=== PATIENT | male | born 1980 | race Caucasian/White ===

== ENCOUNTER 2022-05-29 11:38 | Outpatient (CLI) | payer BC, SELFPAY ==
[2022-05-29 21:28] LABS: Albumin* 4.2 g/dL (3.3-5.0); Chloride* 108 mmol/L (96-114)
[2022-05-29 21:29] LABS: Sodium* 141 mmol/L (135-149)
[2022-05-29 21:31] LABS: Aspartate Amino Transferase* 43 U/L (12-35); Bilirubin Total* 0.7 mg/dL (0.1-1.5); Carbon Dioxide* 25 mmol/L (20-32); Creatinine* 0.8 mg/dL (0.5-1.5); Estimated Glomerular Filt Rate 113.32; Total Protein* 7.1 g/dL (6.0-8.3)
[2022-05-29 21:32] LABS: Alanine Aminotransferase* 43 U/L (4-50); Alkaline Phosphatase* 155 U/L (40-150); Blood Urea Nitrogen* 15 mg/dL (5-24); Glucose* 101 mg/dL (60-115)
== END 2022-05-29 11:39 | disposition home or self-care (01) ==
LOC: FRMREF 11:40
PROVIDERS: PCP Physician Assistant Medical; Visit Provider Dermatology
DX: Z79.899 Other long term (current) drug therapy (principal); L73.2 Hidradenitis suppurativa
CPT/HCPCS: 80053

== ENCOUNTER 2023-01-29 15:36 | Outpatient (CLI) | payer BC, SELFPAY | END 2023-01-29 15:37 | disposition home or self-care (01) | PROVIDERS: PCP Physician Assistant Medical; Visit Provider Dermatology | DX: L73.2 Hidradenitis suppurativa (principal) | CPT/HCPCS: 80053; 80061 ==

== ENCOUNTER 2023-06-17 16:00 | Outpatient (CLI) | payer BC, SELFPAY | END 2023-06-17 16:01 | disposition home or self-care (01) | LOC: NFLDREF 06-19 11:16 | PROVIDERS: PCP Physician Assistant Medical; Referring Provider Physician Assistant Medical; Visit Provider Dermatology | DX: Z51.81 Encounter for therapeutic drug level monitoring (principal) | CPT/HCPCS: 80076 ==

== ENCOUNTER 2024-02-08 09:34 | Outpatient (CLI) | payer BC, SELFPAY | END 2024-02-08 09:35 | disposition home or self-care (01) | PROVIDERS: PCP Physician Assistant Medical; Visit Provider Nurse Practitioner Family | DX: M10.9 Gout, unspecified (principal) | CPT/HCPCS: 84550 ==

== ENCOUNTER 2024-03-17 07:54 | Outpatient (CLI) | payer BC, SELFPAY ==
--- OUTSIDE RECORDS SUMMARY | 2024-03-17 07:56 | XMS_ITS | Referral Summary ---
Author Name Unknown Organization [facility] Address [address] [place] [address] Care Team Providers Care Pharmacy Innovation Assistant Name Role Phone Elsewhere, Pcp Primary Care Provider Unavailabl e Source Comments Patient records contain information from all sites at [facility]. For routine questions regarding patient records, call [phone] during business hours, M-F 8:00 AM - 5:00 PM Central Time. Record requests for emergency care only can be directed to [phone] at any time.[facility] Encounters Date Type Department Care Team Description 03/08/2024 Refill Division of Metabolic and Abdominal Wall Reconstructive Surgery in [place], [place] [address] [place] [phone] Vani Apodaac APRN, C.N.P., D.N.P. Med Refill 02/15/2024 CPAP Download Remote Patient Monitoring [facility] [address] [place] [address] [facility], Provider 02/13/2024 9:00 AM CDT Telemedicine Division of Endocrinology in [place], [place] [address] [place] [address] Eleazar Cabrera APRN, C.N.P., D.N.P. Diversion Biliopancreatic Duodenal Switch (Primary Dx); Apnea Sleep Obstructive; Body Mass Index 45.0 To 49.9 Adult (HCC) 01/31/2024 8:00 AM MICROECONOMICS PROFESSOR Telemedicine Department of Nutrition and Diabetes Education in [place], [place] [address] [place] [address] Eleazar Cabrera APRN, C.N.P., D.N.P. Nick Enriquez, FREDDIEN, LD Gastric Bypass Status Post 01/15/2024 CPAP Download Remote Patient Monitoring [facility] [address] [place] [address] [facility], Provider 12/20/2023 7:12 AM MICROECONOMICS PROFESSOR - 12/20/2023 11:59 PM MICROECONOMICS PROFESSOR Hospital Encounter Department of Laboratory Medicine and Pathology, [facility], in [place], [place] [address] [place] [address] Eleazar Cabrera APRN, C.N.P., D.N.P. Gastric Bypass Status Post Discharge Disposition: Home or Self Care 12/19/2023 12:45 PM MICROECONOMICS PROFESSOR Office Visit Division of Metabolic and Abdominal Wall Reconstructive Surgery in [place], [place] [address] [place] [address] Navin Blas M.D. Surgery Bariatric Status Post (Primary Dx) from Last 3 Months Allergies Active Allergy Reactions Criticality Noted Date Comments Aluminum Hives (Reselect Reaction) High 11/14/2021 Pollen Extracts Other (see comments) 05/04/2022 Itchy nose and eyes Medications Medication Sig Dispensed Refills Start Date End Date Status allopurinoL (ZYLOPRIM) 100 mg tablet Take 100 mg by mouth at bedtime. Take with Allopurinol 300 mg for total dose of 400 mg. 05/02/2022 Active allopurinoL (ZYLOPRIM) 300 mg tablet Take 300 mg by mouth at bedtime. Take with Allopurinol 100 mg for total dose of 400 mg. 05/02/2022 Active amoxicillin-pot clavulanate (AUGMENTIN) 500-125 mg per tablet 1 tablet at bedtime. 05/04/2022 Acti ve sulfamethoxazole- trimethoprim (BACTRIM DS) 800-160 mg per tablet Take 1 tablet by mouth at bedtime. 07/30/2022 Active ISOtretinoin (ACCUTANE) 40 mg capsule Take 40 mg by mouth at bedtime. 07/06/2022 Active DME CPAPIndications:O bstructive Sleep Apnea Adult DME Order 1 each 02/15/2023 Active fexofenadine (FRANCES) 180 mg tablet Take 180 mg by mouth daily as needed (hayfever). 05/29/2022 Active cyanocobalamin (VITAMIN B12) 1,000 mcg/mL injection Inject 1 mL (1,000 mcg total) intramuscularly every 30 (thirty) days. 3 mL 3 12/09/2023 Active SQ 1 Ml Injection Kit 1 kit as directed. Use as directed to inject prescribed medication. 1 kit = 15-1ml syr w/27G 1/2, #15-27G 1/2Needle, #30 Alcohol wipes 3 kit 3 12/09/2023 Active cholecalciferol (VITAMIN D3) 50 mcg (2,000 Unit) capsule Take 1 capsule (50 mcg total) by mouth daily. 11/09/2023 Active sennosides-docusa te sodium (SENOKOT-S) 8.6-50 mg per tablet Take 1 tablet by mouth 2 (two) times a day as needed (constipation related to narcotic medication). 11/09/2023 Active ursodioL (ACTIGALL) 300 mg capsule Take 1 capsule (300 mg total) by mouth 2 (two) times a day. 180 capsule 1 11/28/2023 Active pantoprazole (PROTONIX) 40 mg EC tablet Take 1 tablet (40 mg total) by mouth 2 (two) times a day before breakfast and dinner. Crush and put into bite of applesauce 180 tablet 3 11/28/2023 Active cholestyramine (QUESTRAN) 4 gram packet Take 60 mL (1 packet total) by mouth 2 (two) times a day before lunch and dinner. 180 packet 3 12/19/2023 Active Active Problems Problem Noted Date Diagnosed Date Body Mass Index 45.0 To 49.9 Adult 11/09/2023 Apnea Sleep Obstructive 02/22/2023 Gout 02/22/2023 Pain Joint 02/22/2023 Hidradenitis Suppurativa 02/22/2023 Morbid Obesity Body Mass Index 50.0-59.9 Adult 0 05/08/2022 Social History Tobacco Use Types Packs/Day Years Used Date Smoking Tobacco: Never Smokeless Tobacco: Never Tobacco Cessation:Counseling Given: Not Answered Alcohol Use Standard Drinks/Week Comments Yes 0 (1 standard drink = 0.6 oz pur e alcohol) Infrequent, 1 time a month [facility] Utilities Answer Date Recorded In the past 12 months has [employer], or water [employer] threatened to shut off services in your home? No 02/06/2024 Humiliation, Afraid, Rape, and Kick questionnair e Answer Date Recorded Within the last year, have y ou been afraid of your partner or ex-partner? No 01/04/2023 Within the last year, have y ou been humiliated or emotionally abused in other ways by your partner or ex-partner? No Within the last year, have y ou been kicked, hit, slapped, or otherwise physically hurt by your partner or ex-partner? No 01/04/2023 Within the last year, have y ou been raped or forced to have any kind of sexual activity by your partner or ex-partner? No 01/04/2023 Social Connection and Isolat ion Panel [NHANES] Answer Date Recorded In a typical week, how many times do you talk on the phone with family, friends, or neighbors? Three times a week 01/04/2023 How often do you get togethe r with friends or relatives? Twice a week 01/04/2023 How often do you attend chur or yarsanism services? Never 01/04/2023 Do you belong to any clubs o r organizations such as zoroastrianism groups, unions, fraternal or athletic groups, or school groups? Yes 01/04/2023 How often do you attend meet ings of the clubs or organizations you belong to? More than 4 times per year 01/04/2023 Are you , , di vorced, , never , or living with a partner? 01/04/2023 AUDIT-C Answer Date Recorded Q1: How often do you have a drink containing alc ohol? Monthly or less 01/04/2023 Q2: How many drinks containi ng alcohol do you have on a typical day when you are drinking? 1 or 2 01/04/2023 Q3: How often do you have si x or more drinks on one occasion? Never 01/04/2023 Overall Financial Resource Strain (CARDIA) Answe r Date Recorded How hard is it for you to pa y for the very basics like food, housing, medical care, and heating? Not hard at all 01/04/2023 PHQ-2 Answer Date Recorded PHQ-2 Score 0 08/27/2022 [facility] of Occupat ional Health - Occupational Stress Questionnaire Answer Date Recorded Do you feel stress - tense, restless, nervous, or anxious, or unable to sleep at night because your mind is troubled all the time - these days? Not at all 01/04/2023 Exercise Vital Sign Answer Date Recorde d On average, how many days pe r week do you engage in moderate to strenuous exercise (like a brisk walk)? 5 days 02/06/2024 On average, how many minutes do you engage in exercise at this level? 60 min 02/06/2024 Hunger Vital Sign Answer Date Recorded Within the past 12 months, y ou worried that your food would run out before you got the money to buy more. Never true 02/06/20 24 Within the past 12 months, t he food you bought just didn't last and you didn't have money to get more. Never true 02/06/2024 PRAPARE - Transportation Answer Date Re corded In the past 12 months, has l ack of transportation kept you from medical appointments or from getting medications? No 01/23 In the past 12 months, has l ack of transportation kept you from meetings, work, or from getting things needed for daily living? No 02/06/2024 Depression Answer Date Recor ded PHQ-9 Total Score (max 27) 1 08/27 Nutrition Answer Date Recorded Nutrition: EVOO Fat Source No 02/05 On average, how many serving s of fruits and vegetables do you eat per day (serving size is equal to 1 cup or approximately the size of a tennis ball)? 3-5 02/06/2024 Dental Answer Date Recorded Dental: Regular Dentist Yes 05/04/20 Employment Answer Date Recorded Employment status Employed and actively working without restrictions 02/06/2024 Housing Stability Answer Date Recorded What is your living situation today? I have a [facility] [place] place to live 02/06/2024 Education Answer Date Recorded What is the highest level of school you have completed or the highest degree you have received? Master's degree (e.g., MA, MS, Parker, MEd, ELECTRONIC MUSICAL INSTRUMENT REPAIRER, DAVID) 05/04/2022 Sex and Gender Information Value Date Recorded Sex Assigned at Male 03/08/2022 9:07 PM CDT Gender Identity Male 03/08/2022 9:07 PM CDT Sexual Orientation Straight 03/08/2022 9: 07 PM CDT Last Filed Vital Signs Vital Sign Reading Time Taken Comments Blood Pressure 104/70 12/10/2023 9:35 AM MICROECONOMICS PROFESSOR Pulse 64 12/10/2023 9:36 AM MICROECONOMICS PROFESSOR Temperature 36.8 ??C (98.2 ??F) 12/10/2023 9:12 AM CS T Respiratory Rate 15 12/10/2023 9:36 AM MICROECONOMICS PROFESSOR Oxygen Saturation 97% 12/10/2023 9:36 AM MICROECONOMICS PROFESSOR Inhaled Oxygen Concentration - - Weight 132 kg (291 lb) 02/13/2024 9:08 AM CDT Height 185.4 cm (6' 0.99) 02/13/2024 9:08 AM CD T Body Mass Index 38.4 02/13/2024 9:08 AM CDT Plan of Treatment Upcoming Encounters Date Type Department Care Team (Late st Contact Info) Description 05/21/2024 1:00 PM CDT Telemedicine Department of Nutrition and Diabetes Education in [place], [place] [address] [place] [phone] Eleazar Cabrera APRN, C.N.P., D.N.P. [address] [place] [address] Medical Devices Implanted Type Area Digital Associate Device Identifier Shelf Expiration Date Model / Serial / Lot Hardware E.G. Pins/Screws/ Rods Hardware e.g. pins/screws /rods Bilateral: Shoulder Description:25 years ago, pascual yomaira anchors, not sure what they are made of Clp Apr Intnl Endo 10 - [id number] Implanted:Qt y: 1 on 11/08/2023 by Navin Blas M.D. at [facility] Hardware e.g. pins/screws /rods N/A: Abdomen Medtronic [id number] 04/24/2028 [id number] / / [id number] Y Procedures Procedure Name Priority Date/Time Associated Diagnosis Comments CBC WITHOUT DIFFERENTIAL, B Routine 01/13/2024 8:10 AM MICROECONOMICS PROFESSOR Gastric Bypass Status Post GLUCOSE, FASTING, S/P Routine 01/13/2024 8:10 AM MICROECONOMICS PROFESSOR Gastric Bypass Status Post HEMOGLOBIN A1C, B Routine 01/13/2024 8:1 0 AM MICROECONOMICS PROFESSOR Gastric Bypass Status Post LIPID PANEL, S Routine 01/13/2024 8:10 AM MICROECONOMICS PROFESSOR Gastric Bypass Status Post from Last 3 Months Results * Lipid Panel (01/13/2024 8:10 AM MICROECONOMICS PROFESSOR) Triglycerides 69 mg/dL 01/14/2024 1:56 PM MICROECONOMICS PROFESSOR DTL Comment: ----REFERENCE VALUE---- Normal: <150 mg/dL Borderline High: 150-199 mg/dL High: 200-499 mg/dL Very High: > or =500 mg/dL Cholesterol, Total 112 mg/dL 2023 1:56 PM MICROECONOMICS PROFESSOR DTL Comment: ----REFERENCE VALUE---- Desirable: < 200 mg/dL Borderline High: 200 - 239 mg/dL High: > or = 240 mg/dL Cholesterol, LDL, Calculated 53 mg/dL 01/14/2024 1:56 PM MICROECONOMICS PROFESSOR DTL Comment: ----REFERENCE VALUE---- Desirable: <100 mg/dL Above Desirable: 100-129 mg/dL Borderline High: 130-159 mg/dL High: 160-189 mg/dL Very High: >=190 mg/dL ----ADDITIONAL INFORMATION---- LDL cholesterol calculated using the Obrien/NIH equation. Cholesterol, HDL, S 44 >=40 mg/dL 01/14/2024 1:56 PM MICROECONOMICS PROFESSOR DTL Cholesterol, Non-HDL, Calculated 68 mg/dL 01/14/2024 1:56 PM MICROECONOMICS PROFESSOR DTL Comment: ----REFERENCE VALUE---- Desirable: <130 mg/dL Above Desirable: 130-159 mg/dL Borderline High: 160-189 mg/dL High: 190-219 mg/dL Very High: > or =220 mg/dL Fasting (8 HR or more) Unknown 01/14/2024 12:52 PM MICROECONOMICS PROFESSOR DTL Blood (Blood, Venous) 01/13/2024 8:10 AM MICROECONOMICS PROFESSOR 01/14/2024 12:53 PM MICROECONOMICS PROFESSOR Eleazar Cabrera APRN, C.N.P., D.N.P. LAB BLOOD ADD-ON [facility] [place] [address] [place], [place] [address] DTL [facility] [address] [place] [address] * (ABNORMAL) CBC without Differential (01/13/2024 8:10 AM MICROECONOMICS PROFESSOR) Hemoglobin 14.5 13.2 - 16.6 g/dL 01/14/2024 1:53 PM MICROECONOMICS PROFESSOR DTL Hematocrit 42.9 38.3 - 48.6 % 01/14/2024 1:53 PM MICROECONOMICS PROFESSOR DTL Erythrocytes 4.78 4.35 - 5.65 x10(12)/L 01/14/2024 1:53 PM MICROECONOMICS PROFESSOR DTL MCV 89.7 78.2 - 97.9 fL 01/14/2024 1:53 PM MICROECONOMICS PROFESSOR DTL RBC Distrib Width 15.9(H) 11.8 - 14.5 % 01/14/2024 1:53 PM MICROECONOMICS PROFESSOR DTL Platelet Count 149 135 - 317 x10(9)/L 01/14/2024 1:53 PM MICROECONOMICS PROFESSOR DTL Leukocytes 5.5 3.4 - 9.6 x10(9)/L 01/14/2024 1:53 PM MICROECONOMICS PROFESSOR DTL Blood (Blood, Venous) 01/13/2024 8:10 AM MICROECONOMICS PROFESSOR 01/14/2024 12:52 PM MICROECONOMICS PROFESSOR Eleazar Cabrera APRN, C.N.P., D.N.P. LAB BLOOD ADD-ON [facility] [place] [address] [place] [address], [facility] [address] [place] [address] * Hemoglobin A1c (01/13/2024 8:10 AM MICROECONOMICS PROFESSOR) Hemoglobin A1c, B 4.8 4.0 - 5.6 % 01/14/2024 2:32 PM MICROECONOMICS PROFESSOR DTL Blood (Blood, Venous) 01/13/2024 8:10 AM MICROECONOMICS PROFESSOR 01/14/2024 12:52 PM MICROECONOMICS PROFESSOR Marina Newsome APRN.N.P., D.N.P. LAB BLOOD ADD-ON [facility] [place] [address] [place] [phone], [facility] [address] [place] [address] * Glucose, Fasting (01/13/2024 8:10 AM MICROECONOMICS PROFESSOR) Glucose, P 88 70 - 100 mg/dL 01/14/2024 1:51 PM MICROECONOMICS PROFESSOR DT Blood (Blood, Venous) 01/13/2024 8:10 AM MICROECONOMICS PROFESSOR 01/14/2024 12:53 PM MICROECONOMICS PROFESSOR Marina Newsome APRN.N.P., D.N.P. LAB BLOOD NON ADD-ON Performing Organization Address City/[facility]/ZIP Co de Phone Number [facility] [place] [address] [place] [address] from Last 3 Months Advance Directives For more information, please contact: [phone] * Full Code (Latest Code Status on File) Date Activated Date Inactivated Comments 11/08/2023 6:08 PM 11/09/2023 4:35 PM Question Answer Comments Full Code: Discussed * Full Code Date Activated Date Inactivated Comments 11/08/2023 9:48 AM 11/08/2023 6:08 PM Question Answer Comments Full Code: Discussed Care Teams Pharmacy Innovation Assistant Relationship Specialty Start Date End Date Elsewhere, Pcp PCP - General Internal Medicine 05/04/22
--- OUTSIDE RECORDS SUMMARY | 2024-03-17 07:56 | XMS_ITS | Encounter Summary ---
Author Name Unknown Organization [facility] Address [address] [place] [address] Care Team Providers Care Seam Presser Name Role Phone Elsewhere, Pcp Primary Care Provider Unavailabl e Encounter Details Date Type Department Care Team (Late st Contact Info) Description 01/31/2024 8:00 AM SUPERVISOR BOAT OUTFITTING Telemedicine Department of Nutrition and Diabetes Education in [place], [place] [address] [place] [phone] Eleazar Cabrera, FARMWORKER LIVESTOCK, C.N.P., D.N.P. [address] [place] [phone] Nick Enriquez RDN, LD [address] [place] [phone] Gastric Bypass Status Post Social History Tobacco Use Types Packs/Day Years Used Date Smoking Tobacco: Never Smokeless Tobacco: Never Alcohol Use Standard Drinks/Week Comments Yes 0 (1 standard drink = 0.6 oz pur e alcohol) Infrequent, 1 time a month Humiliation, Afraid, Rape, and Kick questionnair e [...] How often do you attend chur or jainism services? Never 01/04/2023 Do you belong to any clubs o r organizations such as mosque groups, unions, fraternal or athletic groups, or [...] Answer Date Recorded PHQ-2 Score 0 08/27/2022 [facility] of Occupat ional Health - Occupational Stress [...] to strenuous exercise (like a brisk walk)? 3 days 01/04/2023 On average, how many minutes do you engage in exercise at this level? 30 min 01/04/2023 Hunger Vital Sign Answer Date Recorded Within the past 12 months, y ou worried that your food would run out before you got the money to buy more. Never true 01/04/20 23 Within the past 12 months, t he food you bought just didn't last and you didn't have money to get more. Never true 01/04/2023 PRAPARE - Transportation Answer Date Re corded In the past 12 months, has l ack of transportation kept you from medical appointments or from getting medications? No 12/26 In the past 12 months, has l ack of transportation kept you from meetings, work, or from getting things needed for daily living? No 01/04/2023 Housing Stability Vital Sign Answer Geovanny e Recorded In the last 12 months, was t here a time when you were not able to pay the mortgage or rent on time? No 01/04/2023 In the last 12 months, how many places have you lived? 1 01/04/2023 In the last 12 months, was t here a time when you did not have a steady place to sleep or slept in a skilled nursing (including now)? No 01/04/2023 Depression Answer Date Recor ded PHQ-9 Total Score (max 27) 1 08/27 Nutrition Answer Date Recorded Nutrition: EVOO Fat Source No 01/04 On average, how many serving s of fruits and vegetables do you eat per day (serving size is equal to 1 cup or approximately the size of a tennis ball)? 4-5 01/04/2023 Dental Answer Date Recorded Dental: Regular Dentist Yes 05/04/20 Employment Answer Date Recorded Employment status Employed and actively working without restrictions 01/04/2023 Education Answer Date Recorded What is the highest level of school you have completed or the highest degree you have received? Master's degree (e.g., MA, MS, Parker, MEd, RAILROAD ACCOUNTANT, DAVID) 05/04/2022 Sex and Gender Information Value Date Recorded Sex Assigned at Male 03/08/2022 9:07 PM CDT Gender Identity Male 03/08/2022 9:07 PM CDT Sexual Orientation Straight 03/08/2022 9: 07 PM CDT documented as of this encounter Progress Notes * Nick Enriquez, REMA, LD - 01/31/2024 8:00 AM CST Patient presents for two month status post bariatric surgery/procedure nutrition group visit. Patient will be able to identify the nutritional guidelines recommended for two month status post bariatric surgery/procedure and adopt the habits that are needed for improved health and maintenance of weight loss. The objectives of this class are as follows: -Discuss causes of common post-surgical/procedure nutrition problems -Review fluid recommendations -Review protein intake recommendations -Discuss vitamin/mineral supplements -Explain regular texture diet and appropriate portion sizes -Reinforce healthy lifestyle changes Status post Single Anastomosis duodenal-ileal bypass with sleeve on 11/08/[address] Blas Patient assessment: 12-2/3 cups per meal Meals: 3 meals and 1 snack of a protein shake/bar. GI Symptoms: None currently. Notices fatty foods sit heavy in his stomach Fluids: 64+ oz per day- water, protein shake, SF flavor enhancers as needed Protein: 80-100 grams of protein per day Physical Activity: Has gym membership: 30-40 minutes on [employer] machine followed by 30 minutes of lap swimming in pool 3-4 times per week. Dumbbells at home Goals: Continue to track intake on the [employer] ange Follow up per protocol. Patient Census: 4 Total Group Time: 60 minutes Individual time: 15 minutes The patient attended a virtual group class via real-time audio/video technology by Francisco Enriquez RDN, LD in [facility] to patient in patient home. I introduced myself to the group and limits to confidentially were reviewed. RVISOR BOAT OUTFITTING documented in this encounter Plan of Treatment Upcoming Encounters Date Type Department Care Team (Late st Contact Info) Description 05/21/2024 1:00 PM CDT Telemedicine Department of Nutrition and Diabetes Education in [place], [place] [address] [place] [phone] Eleazar Cabrera APRN, C.N.P., D.N.P. [address] [place] [phone] documented as of this encounter Visit Diagnoses Diagnosis Gastric Bypass Status Post documented in this encounter Additional Health Concerns Assessment Noted Time PHQ-9 Depression Total Score: 1 08/27/20 22 3:21 PM CDT documented as of this encounter Care Teams Seam Presser Relationship Specialty Start Date End Date Elsewhere, Pcp PCP - General Internal Medicine 05/04/22 documented as of this encounter
--- OUTSIDE RECORDS SUMMARY | 2024-03-17 07:56 | XMS_ITS ---
Author Name Unknown Organization [facility] Address [address] [place] [address] Care Team Providers Care Yoke Presser Name Role Phone Unavailable Unavailable Unavailable Surgery Details Not on file Complications Check Surgery Details section. Procedure Estimated Blood Loss Check Surgery Details section. Procedure Findings Check Surgery Details section. Procedure Specimens Taken Check Surgery Details section.
--- OUTSIDE RECORDS SUMMARY | 2024-03-17 07:56 | XMS_ITS | Encounter Summary ---
Author Name Unknown Organization [facility] Address [address] [place] [address] Care Team Providers Care Chocolate Finisher Operator Name Role Phone Elsewhere, Pcp Primary Care Provider Unavailabl e Reason for Referral * Specialty Diagnoses / Procedures Referred By Javed t Referred To Contact Eleazar Cabrera APRN, C.N.P., D.N.P. [address] [place] [address] [facility] Referral ID Status Reason Start Date Expiration Date Visits Re quested Visits Authorized Scheduling Instructions 6 Month Group S/P Bariatric Surgery Reason for Visit * Appointment Request (Routine) - Closed Specialty Diagnoses / Procedures Referred By Contac t Referred To Contact Endocrinology Referral ID Status Reason Start Date Expiration Date Visits Re quested Visits Authorized [id number] Closed 01/31/2024 01/30/2025 1 1 Encounter Details Date Type Department Care Team (Latest Contact Info) Description 02/13/2024 9:00 AM CDT Telemedicine Division of Endocrinology in [place], [place] [address] [place] [phone] Eleazar Cabrera APRN, C.N.P., D.N.P. [address] [place] [address] [phone] Diversion Biliopancreatic Duodenal Switch (Primary Dx); Apnea Sleep Obstructive; Body Mass Index 45.0 To 49.9 Adult ([facility]) Social History Tobacco Use Types Packs/Day Years Used Date Smoking Tobacco: Never Smokeless Tobacco: Never Alcohol Use Standard Drinks/Week Comments Yes 0 (1 standard drink = 0.6 oz pur e alcohol) Infrequent, 1 time a month [facility] Utilities Answer Date Recorded In the past 12 months has th e electric, gas, oil, or water company threatened to shut off services in your [...] How often do you attend chur or synagogue services? Never 01/04/2023 Do you belong to any clubs o r organizations such as scientology groups, unions, fraternal or athletic groups, or [...] Answer Date Recorded PHQ-2 Score 0 08/27/2022 [facility] - Occupational Stress Questionnaire Answer Date Recorded [...] your living situation today? I have a [facility] place to live 02/06/2024 Education Answer Date Recorded What is the highest level of school you have completed or the highest degree you have received? Master's degree (e.g., MA, MS, Parker, Cassi, CUSTODIAL LABORER, DAVID) 05/04/2022 Sex and Gender Information Value Date Recorded Sex Assigned at Male 03/08/2022 9:07 PM CDT Gender Identity Male 03/08/2022 9:07 PM CDT Sexual Orientation Straight 03/08/2022 9: 07 PM CDT documented as of this encounter Last Filed Vital Signs Vital Sign Reading Time Taken Comments Blood Pressure - - Pulse - - Temperature - - Respiratory Rate - - Oxygen Saturation - - Inhaled Oxygen Concentration - - Weight 132 kg (291 lb) 02/13/2024 9:08 AM CDT Height 185.4 cm (6' 0.99) 02/13/2024 9:08 AM CD T Body Mass Index 38.4 02/13/2024 9:08 AM CDT documented in this encounter H&P Notes * Eleazar Cabrera, RIO, C.N.P., D.N.P. - 02/13/2024 9:00 AM CDT SUBJECTIVE REASON FOR VISIT This is a 3 month post-bariatric surgery visit. Today's visit was completed with audiovisual equipment virtually from provider's office to patient's home due to the COVID 19 pandemic. Patient consented to this service. HISTORY OF PRESENT ILLNESS He is being seen today for a 3 month follow-up visit after undergoing a Single Anastomosis duodenal-ileal bypass with sleeve on 11/08/[address] Blas WEIGHT HISTORY Baseline weight in nutrition clinic: 177 kg Weight at time of bariatric surgery: 163 kg Weight at approximately 3 months post-bariatric surgery (today): 132 kg PERTINENT REVIEW OF SYSTEMS Gastrointestinal symptoms include: Nausea: Denies Vomiting: Denies Reflux: Denies Diarrhea: Denies Food Blockage: Denies Abdominal Pain: Denies Dumping Syndrome: Denies Constipation: Denies Gas and Bloating: Denies Reasons for gastrointestinal symptoms: not applicable- no symptoms present CURRENT DIET Met with our dietitian on 01/31/24. Finding it hard to belch as many do after surgery. Fluids and protein have been on track, no liquid calories or carbonated beverages. Follow up endoscopy has been therapeutic for him, now without reflux. ALCOHOL USE No alcohol use and the patient understands that we recommend no alcohol use after bariatric surgery. EXERCISE/ACTIVITY PROGRAM Has been really good for him- some knee inflammation holds him back a bit, but is swimming laps 30-45 minutes at a time. Also using elliptical. Going 3-4 times a week, also doing informal exercise with golfing and hiking. The following portions of the patient's history were reviewed and updated as appropriate: visit questionnaire, allergies, labs, current medications, family history, medical history, social history, surgical history, and problem list. OBJECTIVE VITAL SIGNS Vitals: 02/13/24 0908 Height: 185.4 cm Weight: 132 kg ASSESSMENT / PLAN #1 Diversion Biliopancreatic Duodenal Switch #2 Apnea Sleep Obstructive #3 Body Mass Index 45.0 To 49.9 Adult ([facility]) Other orders - Nutrition - Group bariatric education visit (clinic); Future; Expected date: 05/15/2024 - 25-Hydroxyvitamin D2 and D3; Future; Expected date: 05/15/2024 - Albumin; Future; Expected date: 05/15/2024 - AST (Aspartate Aminotransferase); Future; Expected date: 05/15/2024 - Bone Alkaline Phosphatase; Future; Expected date: 05/15/2024 - Calcium, Total; Future; Expected date: 05/15/2024 - Glucose, Fasting; Future; Expected date: 05/15/2024 - Ferritin; Future; Expected date: 05/15/2024 - Creatinine with Estimated GFR; Future; Expected date: 05/15/2024 - CBC without Differential; Future; Expected date: 05/15/2024 - Hemoglobin A1c; Future; Expected date: 05/15/2024 - Lipid Panel; Future; Expected date: 05/15/2024 - Supersaturation, 24 hour, Urine; Future; Expected date: 05/15/2024 - Copper; Future; Expected date: 05/15/2024 - Folate; Future; Expected date: 03/05/2024 - Vitamin A and Vitamin E; Future; Expected date: 05/15/2024 - Zinc; Future; Expected date: 05/15/2024 LABS and MEDICATIONS I reviewed the labs with him today. He should make the following medication changes: Multivitamin: one multivitamin twice daily Calcium: calcium citrate (Citracal or equivalent) 2 times daily with food, being at least 500 mg ineach dose. Vitamin D: no extra vitamin D. Only in his calcium. Vitamin B12: 1000 mcg injection monthly. Iron: no extra iron supplementation, apart from iron present in multivitamins. Labs and 24 hour urine collection prior to next visit will be mailed to his home and brought to a lab with results faxed back to us. Now that he is a few months out from surgery, he has the ok to start more intense physical activity. This should be ideally activity that can increase the heart rate, aiming for 150 minutes of moderate intensity activity weekly. Additionally, he should incorporate strength training in order to preserve lean tissue which will help maintain a higher metabolic rate jail. Emphasis on the next couple months will be aimed at tolerance of new textures of foods and appropriate portion sizes. Plan to continue to slowly increase calories in the next couple months to supportenergy levels, increased activity, and new food options. Will aim to prioritize protein first with meals, and sip between meals to meet protein and fluid goals, and continuing abstinence from alcohol. Briefly reviewed post-bariatric surgery dietary recommendations, including: daily calorie guidelines; healthy dietary and lifestyle choices; common post- surgical nutrition problems; weight plateaus; and the importance of keeping food intake and weight records. He should follow lifelong with a Primary Care Provider for chronic disease management, acute needs,and annual physicals, as well as the [facility] annually jail. At present, I would advise follow-up in approximately 3-4 months. He can contact us for additional appointments if needs arise in the interim. I personally spent a total of 30 minutes in [id number] time performing a review of the record, care coordination, documentation, and discussion with the patient as described above. documented in this encounter Plan of Treatment Upcoming Encounters Date Type Department Care Team (Late st Contact Info) Description 05/21/2024 1:00 PM CDT Telemedicine Department of Nutrition and Diabetes Education in [place], [place] [address] [place] [address] Eleazar Cabrera APRN, C.N.P., D.N.P. [address] [place] [address] Scheduled Orders Name Type Priority Associated Diagnoses Orde r Schedule 25-Hydroxyvitamin D2 and D3 Lab Routine Diversion Biliopancreatic Duodenal Switch Apnea Sleep Obstructive Body Mass Index 45.0 To 49.9 Adult (HCC) Expected: 05/15/2024, Expires: 02/12/2025 Albumin Lab Routine Diversion Biliopancreatic Duodenal Switch Apnea Sleep Obstructive Body Mass Index 45.0 To 49.9 Adult (HCC) Expected: 05/15/2024 (Approximate), Expires: 02/12/2025 AST (Aspartate Aminotransferase) Lab Routine Diversion Biliopancreatic Duodenal Switch Apnea Sleep Obstructive Body Mass Index 45.0 To 49.9 Adult (HCC) Expected: 05/15/2024 (Approximate), Expires: 02/12/2025 Bone Alkaline Phosphatase Lab Routine Diversion Biliopancreatic Duodenal Switch Apnea Sleep Obstructive Body Mass Index 45.0 To 49.9 Adult (HCC) Expected: 05/15/2024 (Approximate), Expires: 02/12/2025 Calcium, Total Lab Routine Diversion Biliopancreatic Duodenal Switch Apnea Sleep Obstructive Body Mass Index 45.0 To 49.9 Adult (HCC) Expected: 05/15/2024 (Approximate), Expires: 02/12/2025 Glucose, Fasting Lab Routine Diversion Biliopancreatic Duodenal Switch Apnea Sleep Obstructive Body Mass Index 45.0 To 49.9 Adult (HCC) Expected: 05/15/2024 (Approximate), Expires: 02/12/2025 Ferritin Lab Routine Diversion Biliopancreatic Duodenal Switch Apnea Sleep Obstructive Body Mass Index 45.0 To 49.9 Adult (HCC) Expected: 05/15/2024 (Approximate), Expires: 02/12/2025 Creatinine with Estimated GFR Lab Routine Diversion Biliopancreatic Duodenal Switch Apnea Sleep Obstructive Body Mass Index 45.0 To 49.9 Adult (HCC) Expected: 05/15/2024 (Approximate), Expires: 02/12/2025 CBC without Differential Lab Routine Diversion Biliopancreatic Duodenal Switch Apnea Sleep Obstructive Body Mass Index 45.0 To 49.9 Adult (HCC) Expected: 05/15/2024 (Approximate), Expires: 02/12/2025 Hemoglobin A1c Lab Routine Diversion Biliopancreatic Duodenal Switch Apnea Sleep Obstructive Body Mass Index 45.0 To 49.9 Adult (HCC) Expected: 05/15/2024 (Approximate), Expires: 02/12/2025 Lipid Panel Lab Routine Diversion Biliopancreatic Duodenal Switch Apnea Sleep Obstructive Body Mass Index 45.0 To 49.9 Adult (HCC) Expected: 05/15/2024 (Approximate), Expires: 02/12/2025 Supersaturation, 24 hour, Urine Lab Routine Diversion Biliopancreatic Duodenal Switch Apnea Sleep Obstructive Body Mass Index 45.0 To 49.9 Adult (HCC) Expected: 05/15/2024 (Approximate), Expires: 02/12/2025 Copper Lab Routine Diversion Biliopancreatic Duodenal Switch Apnea Sleep Obstructive Body Mass Index 45.0 To 49.9 Adult (HCC) Expected: 05/15/2024 (Approximate), Expires: 05/15/2025 Vitamin A and Vitamin E Lab Routine Diversion Biliopancreatic Duodenal Switch Apnea Sleep Obstructive Body Mass Index 45.0 To 49.9 Adult (HCC) Expected: 05/15/2024 (Approximate), Expires: 05/15/2025 Zinc Lab Routine Diversion Biliopancreatic Duodenal Switch Apnea Sleep Obstructive Body Mass Index 45.0 To 49.9 Adult (HCC) Expected: 05/15/2024 (Approximate), Expires: 05/15/2025 Folate Lab Routine Diversion Biliopancreatic Duodenal Switch Apnea Sleep Obstructive Body Mass Index 45.0 To 49.9 Adult (HCC) Expected: 05/15/2024 (Approximate), Expires: 05/15/2025 Scheduled Referrals Name Type Priority Associated Diagnoses Orde r Schedule Nutrition - Group bariatric education visit (clinic) Outpatient Referral Routine Diversion Biliopancreatic Duodenal Switch Apnea Sleep Obstructive Body Mass Index 45.0 To 49.9 Adult (HCC) Expected: 05/15/2024 (Approximate), Expires: 05/15/2025 documented as of this encounter Visit Diagnoses Diagnosis Diversion Biliopancreatic Duodenal Switch- Primary Apnea Sleep Obstructive Body Mass Index 45.0 To 49.9 Adult (HCC) documented in this encounter Additional Health Concerns Assessment Noted Time PHQ-9 Depression Total Score: 1 08/27/20 22 3:21 PM CDT documented as of this encounter Care Teams Chocolate Finisher Operator Relationship Specialty Start Date End Date Elsewhere, Pcp PCP - General Internal Medicine 05/04/22 documented as of this encounter
--- OUTSIDE RECORDS SUMMARY | 2024-03-17 07:56 | XMS_ITS | Clinical Summary ---
Author Name Unknown Organization [facility] Address [address] [place] [address] Care Team Providers Care Waiter/Waitress Dining Car Name Role Phone Elsewhere, Pcp Primary Care Provider Unavailabl e Source Comments Patient records contain information from all sites at [facility]. For routine questions regarding patient records, call [phone] during business hours, M-F 8:00 AM - 5:00 PM Central Time. Record requests for emergency care only can be directed to [phone] at any time.[facility] Allergies Active Allergy Reactions Criticality Noted Date [...] Body Mass Index 50.0-59.9 Adult 0 05/08/2022 Encounters Date Type Department Care Team Description 03/08/2024 Refill Division of Metabolic and Abdominal Wall Reconstructive Surgery in [place], [place] [address] [place] [address] Vani Apodaca APRN C.N.P., D.N.P. Med Refill 02/15/2024 CPAP Download Remote Patient Monitoring [facility] [address] [place] [address] [facility], Provider 02/13/2024 9:00 AM CDT Telemedicine Division of Endocrinology in [place], [place] [address] [place] [phone] Eleazar Cabrera APRN C.N.PAlexis, D.N.P. Diversion Biliopancreatic Duodenal Switch (Primary Dx); Apnea Sleep Obstructive; Body Mass Index 45.0 To 49.9 Adult ([facility]) 01/31/2024 8:00 AM INDEPENDENT JEWELER Telemedicine Department of Nutrition and Diabetes Education in [place], [place] [address] [place] [phone] Eleazar Cabrera APRN, C.N.P., D.N.P. Nick Enriquez RDN, LD Gastric Bypass Status Post 01/15/2024 CPAP Download Remote Patient Monitoring [facility] [address] [place] [address] [facility], Provider 12/20/2023 7:12 AM INDEPENDENT JEWELER - 12/20/2023 11:59 PM IN[facility]ENDENT JEWELER Hospital Encounter Department of Laboratory Medicine and Pathology, [facility], in [place], [place] [address] [place] [phone] Eleazar Cabrera APRN, Marina.N.P., D.N.P. Gastric Bypass Status Post Discharge Disposition: Home or Self Care 12/19/2023 12:45 PM INDEPENDENT JEWELER Office Visit Division of Metabolic and Abdominal Wall Reconstructive Surgery in [place], [place] [address] [place] [phone] Navin Blas M.D. Surgery Bariatric Status Post (Primary Dx) from Last 3 Months Family History Medical History Relation Name Comments Leukemia Brother Felipe Streeter Hairy cell leuk emia , 43 Obesity Brother Felipe Streeter Coronary artery disease Father Mariano Streeter Sudd en arrhythmia Diabetes Father Mariano Streeter Type 2 Hyperlipidemia Father Mariano Streeter Hypertension Father Mariano Streeter Obesity Father Mariano Streeter Leukemia Father's Brother Gregorio Ferdinand 60 Breast cancer Father's Sister Ana Hudson 60 Clotting disorder Mother Lnida Streeter Diabetes Mother Linda Streeter Type 2 Obesity Mother Linda Streeter Coronary artery disease Paternal Grandfather Jonathan interiano Massive heart attack Diabetes Paternal Grandmother Sandra Streeetr Clotting disorder Sister Karen Ivory Obesity Sister Karen Ivory Relation Name Status Comments Brother Felipe Streeter Father Mariano Streeter Father's Brother Gregorio Streeter Father's Sister Ana Hudson Mother Linda Streeter Paternal Grandfather Jonathan Streeter Paternal Grandmother Sandra Streeter Sister Karen Ivory Social History Tobacco Use Types Packs/Day Years Used Date Smoking Tobacco: Never Smokeless Tobacco: Never Tobacco Cessation:Counseling Given: Not Answered Alcohol Use Standard Drinks/Week Comments Yes 0 (1 standard drink = 0.6 oz pur e alcohol) Infrequent, 1 time a month [facility] [email or web address] Answer Date Recorded In the past 12 months has e [employer], gas, oil, or water [employer] threatened to shut off services in your [...] 01/04/2023 How often do you attend chur ch or jewish services? Never 01/04/2023 Do you belong to any clubs o r organizations such as judaism groups, unions, fraternal or athletic groups, or [...] Answer Date Recorded PHQ-2 Score 0 08/27/2022 [facility] - Occupational Stress Questionnaire Answer Date Recorded [...] your living situation today? I have a [facility] place to live 02/06/2024 Education Answer Date Recorded What is the highest level of school you have completed or the highest degree you have received? Master's degree (e.g., MA, MS, Parker, MEd, TURBINE MEASUREMENTS ENGINEER, DAVID) 05/04/2022 Sex and Gender Information Value Date Recorded Sex Assigned at Male 03/08/2022 9:07 PM CDT Gender Identity Male 03/08/2022 9:07 PM CDT Sexual Orientation Straight 03/08/2022 9: 07 PM CDT Last Filed Vital Signs Vital Sign Reading Time Taken Comments Blood Pressure 104/70 12/10/2023 9:35 AM INDEPENDENT JEWELER Pulse 64 12/10/2023 9:36 AM INDEPENDENT JEWELER Temperature 36.8 ??C (98.2 ??F) 12/10/2023 9:12 AM CS T Respiratory Rate 15 12/10/2023 9:36 AM INDEPENDENT JEWELER Oxygen Saturation 97% 12/10/2023 9:36 AM INDEPENDENT JEWELER Inhaled Oxygen Concentration - - Weight 132 kg (291 lb) 02/13/2024 9:08 AM CDT Height 185.4 cm (6' 0.99) 02/13/2024 9:08 AM CD T Body Mass Index 38.4 02/13/2024 9:08 AM CDT Plan of Treatment Upcoming Encounters Date Type Department Care Team (Late st Contact Info) Description 05/21/2024 1:00 PM CDT Telemedicine Department of Nutrition and Diabetes Education in [place], [place] [address] [place] [address] Eleazar Cabrera APRN, C.N.P., D.N.P. [address] [place] [address] Health Maintenance Due Date Last Done Comments HIV Screening 1979 Hepatitis C Screening 1979 DTaP,Tdap,and Td Vaccines (1 - Tdap) 1998 Hepatitis B Vaccines (1 of 3 - 19+ 3-dose series) 1998 COVID-19 Vaccine (3 - 2022-2 4 season) 2023 05/24/2021, 03/05/2021 Influenza Vaccine (#1) 2023 09/26/2021 Depression Screening (Annual PHQ-2) 11/25/2023 Lipid (Cholesterol) Screening 01/13/2029 01/13/2024 HPV Vaccines Aged Out No longer eligi ble based on patient's age to complete this topic Pneumococcal vaccine (0-64 years) Aged Out No longer eligible b ased on patient's age to complete this topic Medical Devices Implanted Type Area Electromechanisms Design Drafter Device Identifier Shelf Expiration Date Model / Serial / Lot Hardware E.G. Pins/Screws/ Rods Hardware e.g. pins/screws /rods Bilateral: Shoulder Description:25 years ago, pascual burnette anchors, not sure what they are made of Clp Apr Intnl Endo 10 - [id number] Implanted:Qt y: 1 on 11/08/2023 by Navin Blas M.D. at [facility] Hardware e.g. pins/screws /rods N/A: Abdomen Medtronic [id number] 04/24/2028 [id number] / / [id number] Procedures Procedure Name Priority Date/Time Associated Diagnosis Comments CBC WITHOUT DIFFERENTIAL, B Routine 01/13/2024 8:10 AM INDEPENDENT JEWELER Gastric Bypass Status Post GLUCOSE, FASTING, S/P Routine 01/13/2024 8:10 AM INDEPENDENT JEWELER Gastric Bypass Status Post HEMOGLOBIN A1C, B Routine 01/13/2024 8:1 0 AM INDEPENDENT JEWELER Gastric Bypass Status Post LIPID PANEL, S Routine 01/13/2024 8:10 AM INDEPENDENT JEWELER Gastric Bypass Status Post from Last 3 Months Results * Lipid Panel (01/13/2024 8:10 AM INDEPENDENT JEWELER) Triglycerides 69 mg/dL 01/14/2024 1:56 PM INDEPENDENT JEWELER DTL Comment: ----REFERENCE VALUE---- Normal: <150 mg/dL Borderline High: 150-199 mg/dL High: 200-499 mg/dL Very High: > or =500 mg/dL Cholesterol, Total 112 mg/dL 2023 1:56 PM INDEPENDENT JEWELER DTL Comment: ----REFERENCE VALUE---- Desirable: < 200 mg/dL Borderline High: 200 - 239 mg/dL High: > or = 240 mg/dL Cholesterol, LDL, Calculated 53 mg/dL 01/14/2024 1:56 PM INDEPENDENT JEWELER DTL Comment: ----REFERENCE VALUE---- Desirable: <100 mg/dL Above Desirable: 100-129 mg/dL Borderline High: 130-159 mg/dL High: 160-189 mg/dL Very High: >=190 mg/dL ----ADDITIONAL INFORMATION---- LDL cholesterol calculated using the Obrien/NIH equation. Cholesterol, HDL, S 44 >=40 mg/dL 01/14/2024 1:56 PM INDEPENDENT JEWELER DTL Cholesterol, Non-HDL, Calculated 68 mg/dL 01/14/2024 1:56 PM INDEPENDENT JEWELER DTL Comment: ----REFERENCE VALUE---- Desirable: <130 mg/dL Above Desirable: 130-159 mg/dL Borderline High: 160-189 mg/dL High: 190-219 mg/dL Very High: > or =220 mg/dL Fasting (8 HR or more) Unknown 01/14/2024 12:52 PM INDEPENDENT JEWELER DTL Blood (Blood, Venous) 01/13/2024 8:10 AM INDEPENDENT JEWELER 01/14/2024 12:53 PM INDEPENDENT JEWELER Eleazar Cabrera APRN C.N.P., D.N.P. LAB BLOOD ADD-ON [facility] [address] [place] [address], [facility] [place] [address] [place] [address] * (ABNORMAL) CBC without Differential (01/13/2024 8:10 AM INDEPENDENT JEWELER) Pathologist [facility] Hemoglobin 14.5 13.2 - 16.6 g/dL 01/14/2024 1:53 PM INDEPENDENT JEWELER DTL Hematocrit 42.9 38.3 - 48.6 % 01/14/2024 1:53 PM INDEPENDENT JEWELER DTL Erythrocytes 4.78 4.35 - 5.65 x10(12)/L 01/14/2024 1:53 PM INDEPENDENT JEWELER DTL MCV 89.7 78.2 - 97.9 fL 01/14/2024 1:53 PM INDEPENDENT JEWELER DTL RBC Distrib Width 15.9(H) 11.8 - 14.5 % 01/14/2024 1:53 PM INDEPENDENT JEWELER DTL Platelet Count 149 135 - 317 x10(9)/L 01/14/2024 1:53 PM INDEPENDENT JEWELER DTL Leukocytes 5.5 3.4 - 9.6 x10(9)/L 01/14/2024 1:53 PM INDEPENDENT JEWELER DTL Blood (Blood, Venous) 01/13/2024 8:10 AM INDEPENDENT JEWELER 01/14/2024 12:52 PM INDEPENDENT JEWELER Marina Newsome APRN.N.P., D.N.P. LAB BLOOD ADD-ON Performing Organization Address City/[facility]/ZIP Co de Phone Number [facility] [address] [place] [address], [facility] [address] [place] [address] * Hemoglobin A1c (01/13/2024 8:10 AM INDEPENDENT JEWELER) Pathologist [facility] Hemoglobin A1c, B 4.8 4.0 - 5.6 % 01/14/2024 2:32 PM INDEPENDENT JEWELER DTL Blood (Blood, Venous) 01/13/2024 8:10 AM INDEPENDENT JEWELER 01/14/2024 12:52 PM INDEPENDENT JEWELER Marina Newsome APRN.N.P., D.N.P. LAB BLOOD ADD-ON [facility] [address] [place] [address], [facility] [place] [address] [place] [address] * Glucose, Fasting (01/13/2024 8:10 AM INDEPENDENT JEWELER) Glucose, P 88 70 - 100 mg/dL 01/14/2024 1:51 PM INDEPENDENT JEWELER DTL Blood (Blood, Venous) 01/13/2024 8:10 AM INDEPENDENT JEWELER 01/14/2024 12:53 PM INDEPENDENT JEWELER Eleazar Veronica Rick PATE, C.N.P., D.N.P. LAB BLOOD NON ADD-ON [facility] [address] [place] [address], [facility] [place] [address] [place] [address] from Last 3 Months Advance Directives For more information, please contact: [phone] * Full Code (Latest Code Status on File) Date Activated Date Inactivated Comments 11/08/2023 6:08 PM 11/09/2023 4:35 PM Question Answer Comments Full Code: Discussed * Full Code Date Activated Date Inactivated Comments 11/08/2023 9:48 AM 11/08/2023 6:08 PM Question Answer Comments Full Code: Discussed Care Teams Waiter/Waitress Dining Car Relationship Specialty Start Date End Date Elsewhere, Pcp PCP - General Internal Medicine 05/04/22
--- OUTSIDE RECORDS SUMMARY | 2024-03-17 07:56 | XMS_ITS | Encounter Summary ---
Author Name Unknown Organization [facility] Address [address] [place] [address] Care Team Providers Care Woodworking Bench Carpenter Name Role Phone Elsewhere, Pcp Primary Care Provider Unavailabl e Encounter Details Date Type Department Care Team (Late st Contact Info) Description 02/15/2024 CPAP Download Remote Patient Monitoring [facility] [address] [place] [address] [facility], Provider Social History Tobacco Use Types Packs/Day Years Used Date Smoking Tobacco: Never Smokeless Tobacco: Never Alcohol Use Standard Drinks/Week Comments Yes 0 (1 standard drink = 0.6 oz pur e alcohol) Infrequent, 1 time a month [facility] Utilities Answer Date Recorded In the past 12 months has e electric, gas, oil, or water company [...] often do you attend chur ch or religion services? Never 01/04/2023 Do you belong to any clubs o r organizations such as synagogue groups, unions, fraternal or athletic groups, or [...] Answer Date Recorded PHQ-2 Score 0 08/27/2022 [facility] of Occupat ional Health - Occupational Stress [...] your living situation today? I have a [facility] place to live 02/06/2024 Education Answer Date Recorded What is the highest level of school you have completed or the highest degree you have received? Master's degree (e.g., MA, MS, Parker, MEd, REGIONAL PLANNER, DAVID) 05/04/2022 Sex and Gender Information Value Date Recorded Sex Assigned at Male 03/08/2022 9:07 PM CDT Gender Identity Male 03/08/2022 9:07 PM CDT Sexual Orientation Straight 03/08/2022 9: 07 PM CDT documented as of this encounter Plan of Treatment Upcoming Encounters Date Type Department Care Team (Late st Contact Info) Description 05/21/2024 1:00 PM CDT Telemedicine Department of Nutrition and Diabetes Education in [place], [place] [address] [place] [address] Eleazar Cabrera APRN, C.N.P., D.N.P. [address] [place] [address] documented as of this encounter Visit Diagnoses Not on filedocumented in this encounter Additional Health Concerns Assessment Noted Time PHQ-9 Depression Total Score: 1 08/27/20 22 3:21 PM CDT documented as of this encounter Care Teams Woodworking Bench Carpenter Relationship Specialty Start Date End Date Elsewhere, Pcp PCP - General Internal Medicine 05/04/22 documented as of this encounter
--- OUTSIDE RECORDS SUMMARY | 2024-03-17 07:56 | XMS_ITS | Encounter Summary ---
Author Name Unknown Organization [facility] Address [address] [place] [address] Care Team Providers Care Magnetic Observer Name Role Phone Elsewhere, Pcp Primary Care Provider Unavailabl e Reason for Visit * Reason Comments Med Refill Encounter Details Date Type Department Care Team (Late st Contact Info) Description 03/08/2024 Refill Division of Metabolic and Abdominal Wall Reconstructive Surgery in [place], [place] [address] [place] [address] Vani Apodaca APRN, C.N.P., D.N.P. [address] [place] [phone] Med Refill Social History Tobacco Use Types Packs/Day Years Used Date Smoking Tobacco: Never Smokeless Tobacco: Never Alcohol Use Standard Drinks/Week Comments Yes 0 (1 standard drink = 0.6 oz pur e alcohol) Infrequent, 1 time a month [facility] Utilities Answer Date Recorded In the past 12 months has e [employer], gas, oil, or water [employer] threatened to shut off services in your [...] often do you attend chur ch or moravian services? Never 01/04/2023 Do you belong to any clubs o r organizations such as scientologist groups, unions, fraternal or athletic groups, or [...] Answer Date Recorded PHQ-2 Score 0 08/27/2022 [facility] of Occupat ional Health - Occupational [...] your living situation today? I have a [facility] place to live 02/06/2024 Education Answer Date Recorded What is the highest level of school you have completed or the highest degree you have received? Master's degree (e.g., MA, MS, Parker, MEd, TERMINAL MAKEUP OPERATOR, DAVID) 05/04/2022 Sex and Gender Information Value Date Recorded Sex Assigned at Male 03/08/2022 9:07 PM CDT Gender Identity Male 03/08/2022 9:07 PM CDT Sexual Orientation Straight 03/08/2022 9: 07 PM CDT documented as of this encounter Miscellaneous Notes * Telephone Encounter - Vani Apodaca APRN, C.N.P., D.N.P. - 03/09/2024 8:00 AM CDT No additional refills for Actigall needed, only 6 months needed post bariatric surgery documented in this encounter Plan of Treatment Upcoming Encounters Date Type Department Care Team (Late st Contact Info) Description 05/21/2024 1:00 PM CDT Telemedicine Department of Nutrition and Diabetes Education in [place], [place] [address] [place] [phone] Eleazar Cabrera APRN, C.N.Anders., D.N.P. [address] [place] [phone] documented as of this encounter Visit Diagnoses Not on filedocumented in this encounter Additional Health Concerns Assessment Noted Time PHQ-9 Depression Total Score: 1 08/27/20 22 3:21 PM CDT documented as of this encounter Care Teams Magnetic Observer Relationship Specialty Start Date End Date Elsewhere, Pcp PCP - General Internal Medicine 05/04/22 documented as of this encounter
--- OUTSIDE RECORDS SUMMARY | 2024-03-17 07:57 | XMS_ITS | Encounter Summary ---
Author Name Unknown Organization [facility] Address [address] [place] [address] Care Team Providers Care Leadite Worker Name Role Phone Elsewhere, Pcp Primary Care Provider Unavailabl e Reason for Visit * Outpatient (Routine) - Closed Specialty Diagnoses / Procedures Referred By Javed garrison Referred To Contact General Surgery Navin Blas M.D. [address] [place] [phone] [facility] Referral ID Status Reason Start Date Expiration Date Visits Re quested Visits Authorized [id number] Closed 12/10/2023 12/09/2026 1 1 Encounter Details Date Type Department Care Team (Latest Contact Info) Description 12/19/2023 12:45 PM SQUARE CUTTER Office Visit Division of Metabolic and Abdominal Wall Reconstructive Surgery in [place], [place] [address] [place] [address] Navin Blas M.D. [address] [place] [phone] Surgery Bariatric Status Post (Primary Dx) Social History Tobacco Use Types Packs/Day Years [...] How often do you attend chur or caodaism services? Never 01/04/2023 Do you belong to any clubs o r organizations such as uatsdin groups, unions, fraternal or athletic groups, or [...] Answer Date Recorded PHQ-2 Score 0 08/27/2022 [facility] of Occupat ional Health - Occupational Stress [...] degree (e.g., MA, MS, Parker, MEd, REGIONAL TRAINER, DAVID) 05/04/2022 Sex and Gender Information Value Date Recorded Sex Assigned at Male 03/08/2022 9:07 PM CDT Gender Identity Male 03/08/2022 9:07 PM CDT Sexual Orientation Straight 03/08/2022 9: 07 PM CDT documented as of this encounter Consult Notes * Navin Blas M.D. 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 He is feeling way better since his endoscopy. He an instead of having multiple episodes of reflux during the night had to episodes and they were very mild in the past 7-10 days. He has lost 65 lb. Nodiarrhea. He is taking his vitamins. He is very happy with his progress now. We will follow up withhim as needed. If the symptoms recur then he needs to let us know. He totally understands. Note that my nurse Gaye Enriquez was present during the whole encounter RE CUTTER documented in this encounter Plan of Treatment Upcoming Encounters Date Type Department Care Team (Late st Contact Info) Description 05/21/2024 1:00 PM CDT Telemedicine Department of Nutrition and Diabetes Education in [place], [place] [address] [place] [phone] Eleazar Cabrera APRN, C.N.P., D.N.P. [address] [place] [address] documented as of this encounter Visit Diagnoses Diagnosis Surgery Bariatric Status Post- Primary documented in this encounter Additional Health Concerns Assessment Noted Time PHQ-9 Depression Total Score: 1 08/27/20 22 3:21 PM CDT documented as of this encounter Care Teams Leadite Worker Relationship Specialty Start Date End Date Elsewhere, Pcp PCP - General Internal Medicine 05/04/22 documented as of this encounter
--- OUTSIDE RECORDS SUMMARY | 2024-03-17 07:57 | XMS_ITS | Encounter Summary ---
Author Name Unknown Organization [facility] Address [address] [place] [address] Care Team Providers Care Sales And Marketing Associate Name Role Phone Elsewhere, Pcp Primary Care Provider Unavailabl e Encounter Details Date Type Department Care Team (Latest Contact Info) Description 12/20/2023 7:12 AM [facility] - 12/20/2023 11:59 PM [facility] Hospital Encounter Department of Laboratory Medicine and Pathology, [facility] in [place], [place] [address] [place] [address] Eleazar Cabrera APRN, C.N.P., D.N.P. [address] [place] [phone] Gastric Bypass Status Post Discharge Disposition: Home or Self Care Social History Tobacco Use Types Packs/Day Years [...] How often do you attend chur or sikhism services? Never 01/04/2023 Do you belong to [...] Answer Date Recorded PHQ-2 Score 0 08/27/2022 [facility] of Occupat ionma Health - Occupational Stress Questionnaire Answer Date [...] place to sleep or slept in a detention (including now)? No 01/04/2023 Depression Answer Date [...] Master's degree (e.g., MA, MS, Parker, MEd, CHAIN FORMING MACHINE OPERATOR, DAVID) 05/04/2022 Sex and Gender Information Value Date Recorded Sex Assigned at Male 03/08/2022 9:07 PM CDT Gender Identity Male 03/08/2022 9:07 PM CDT Sexual Orientation Straight 03/08/2022 9: 07 PM CDT documented as of this encounter Medications at Time of Discharge Medication Sig Dispensed Refills Start Date End Date allopurinoL (ZYLOPRIM) 100 mg tablet Take 100 mg by mouth at bedtime. Take with Allopurinol 300 mg for total dose of 400 mg. 05/02/2022 allopurinoL (ZYLOPRIM) 300 mg tablet Take 300 mg by mouth at bedtime. Take with Allopurinol 100 mg for total dose of 400 mg. 05/02/2022 amoxicillin-pot clavulanate (AUGMENTIN) 500-125 mg per tablet 1 tablet at bedtime. 05/04/2022 cholecalciferol (VITAMIN D3) 50 mcg (2,000 Unit) capsule Take 1 capsule (50 mcg total) by mouth daily. 11/09/2023 cholestyramine (QUESTRAN) 4 gram packet Take 60 mL (1 packet total) by mouth 2 (two) times a day before lunch and dinner. 180 packet 3 12/19/2023 cyanocobalamin (VITAMIN B12) 1,000 mcg/mL injection Inject 1 mL (1,000 mcg total) intramuscularly every 30 (thirty) days. 3 mL 3 12/09/2023 DME CPAPIndications:Obs tructive Sleep Apnea Adult DME Order 1 each 02/15/2023 fexofenadine (FRANCES) 180 mg tablet Take 180 mg by mouth daily as needed (selena). 05/29/2022 ISOtretinoin (ACCUTANE) 40 mg capsule Take 40 mg by mouth at bedtime. 07/06/2022 pantoprazole (PROTONIX) 40 mg EC tablet Take 1 tablet (40 mg total) by mouth 2 (two) times a day before breakfast and dinner. Crush and put into bite of applesauce 180 tablet 3 11/28/2023 sennosides-docusate sodium (SENOKOT-S) 8.6-50 mg per tablet Take 1 tablet by mouth 2 (two) times a day as needed (constipation related to narcotic medication). 11/09/2023 SQ 1 Ml Injection Kit 1 kit as directed. Use as directed to inject prescribed medication. 1 kit = 15-1ml syr w/27G 1/2, #15-27G 1/2Needle, #30 Alcohol wipes 3 kit 3 12/09/2023 sulfamethoxazole-tr imethoprim (BACTRIM DS) 800-160 mg per tablet Take 1 tablet by mouth at bedtime. 07/30/2022 ursodioL (ACTIGALL) 300 mg capsule Take 1 capsule (300 mg total) by mouth 2 (two) times a day. 180 capsule 1 11/28/2023 05/26/2024 documented as of this encounter Plan of Treatment Upcoming Encounters Date Type Department Care Team (Late st Contact Info) Description 05/21/2024 1:00 PM CDT Telemedicine Department of Nutrition and Diabetes Education in [place], [place] [address] [place] [phone] Eleazar Cabrera APRN, C.N.P., D.N.P. [address] [place] [address] documented as of this encounter Procedures Procedure Name Priority Date/Time Associated Diagnosis Comments LIPID PANEL, S Routine 01/13/2024 8:10 AM [facility] Gastric Bypass Status Post CBC WITHOUT DIFFERENTIAL, B Routine 01/13/2024 8:10 AM [facility] Gastric Bypass Status Post HEMOGLOBIN A1C, B Routine 01/13/2024 8:1 0 AM [facility] Gastric Bypass Status Post GLUCOSE, FASTING, S/P Routine 01/13/2024 8:10 AM [facility] Gastric Bypass Status Post documented in this encounter Results * (ABNORMAL) CBC without Differential (01/13/2024 8:10 AM [facility]) Hemoglobin 14.5 13.2 - 16.6 g/dL 01/14/2024 1:53 PM [facility] DTL Hematocrit 42.9 38.3 - 48.6 % 01/14/2024 1:53 PM [facility] DTL Erythrocytes 4.78 4.35 - 5.65 x10(12)/L 01/14/2024 1:53 PM [facility] DTL MCV 89.7 78.2 - 97.9 fL 01/14/2024 1:53 PM [facility] DTL RBC Distrib Width 15.9(H) 11.8 - 14.5 % 01/14/2024 1:53 PM [facility] DTL Platelet Count 149 135 - 317 x10(9)/L 01/14/2024 1:53 PM [facility] DTL Leukocytes 5.5 3.4 - 9.6 x10(9)/L 01/14/2024 1:53 PM [facility] DTL Blood (Blood, Venous) 01/13/2024 8:10 AM [facility] 01/14/2024 12:52 PM [facility] Marina Newsome APRN.N.P., D.N.P. LAB BLOOD ADD-ON [facility] [address] 200 [place] [address] * Glucose, Fasting (01/13/2024 8:10 AM [facility]) Glucose, P 88 70 - 100 mg/dL 01/14/2024 1:51 PM [facility] DTL Blood (Blood, Venous) 01/13/2024 8:10 AM [facility] 01/14/2024 12:53 PM [facility] Marina Newsome APRN.N.P., D.N.P. LAB BLOOD NON ADD-ON Performing Organization Address City/[facility]/ZIP Co de Phone Number [facility] [place] [address] [place], [place] [phone] [place] [address] 200 [place] [address] * Hemoglobin A1c (01/13/2024 8:10 AM [facility]) Hemoglobin A1c, B 4.8 4.0 - 5.6 % 01/14/2024 2:32 PM [facility] DTL Blood (Blood, Venous) 01/13/2024 8:10 AM [facility] 01/14/2024 12:52 PM [facility] Marina Newsome APRN.N.P., D.N.P. LAB BLOOD ADD-ON [facility] [place] [address] DTL [facility] [address] [place] [address] * Lipid Panel (01/13/2024 8:10 AM [facility]) Triglycerides 69 mg/dL 01/14/2024 1:56 PM [facility] DTL Comment: ----REFERENCE VALUE---- Normal: <150 mg/dL Borderline High: 150-199 mg/dL High: 200-499 mg/dL Very High: > or =500 mg/dL Cholesterol, Total 112 mg/dL 2023 1:56 PM [facility] DTL Comment: ----REFERENCE VALUE---- Desirable: < 200 mg/dL Borderline High: 200 - 239 mg/dL High: > or = 240 mg/dL Cholesterol, LDL, Calculated 53 mg/dL 01/14/2024 1:56 PM [facility] DTL Comment: ----REFERENCE VALUE---- Desirable: <100 mg/dL Above Desirable: 100-129 mg/dL Borderline High: 130-159 mg/dL High: 160-189 mg/dL Very High: >=190 mg/dL ----ADDITIONAL INFORMATION---- LDL cholesterol calculated using the Obrien/NIH equation. Cholesterol, HDL, S 44 >=40 mg/dL 01/14/2024 1:56 PM [facility] DTL Cholesterol, Non-HDL, Calculated 68 mg/dL 01/14/2024 1:56 PM [facility] DTL Comment: ----REFERENCE VALUE---- Desirable: <130 mg/dL Above Desirable: 130-159 mg/dL Borderline High: 160-189 mg/dL High: 190-219 mg/dL Very High: > or =220 mg/dL Fasting (8 HR or more) Unknown 01/14/2024 12:52 PM [facility] DTL Blood (Blood, Venous) 01/13/2024 8:10 AM [facility] 01/14/2024 12:53 PM [facility] Eleazar Cabrera APRN, C.N.P., D.N.P. LAB BLOOD ADD-ON [facility] [place] [address] [place] [address], [facility] DTL [facility] [address] [place] [address] documented in this encounter Visit Diagnoses Diagnosis Gastric Bypass Status Post documented in this encounter Additional Health Concerns Assessment Noted Time PHQ-9 Depression Total Score: 1 08/27/20 22 3:21 PM CDT documented as of this encounter Care Teams Sales And Marketing Associate Relationship Specialty Start Date End Date Elsewhere, Pcp PCP - General Internal Medicine 05/04/22 documented as of this encounter
--- OUTSIDE RECORDS SUMMARY | 2024-03-17 07:57 | XMS_ITS | Encounter Summary ---
Author Name Unknown Organization [facility] Address [address] [place] [address] Care Team Providers Care Mysql Database Administrator Name Role Phone Elsewhere, Pcp Primary Care Provider Unavailabl e Reason for Referral * Outpatient (Routine) - Closed Specialty Diagnoses / Procedures Referred By Javed garrison Referred To Contact General Surgery Navin Blas M.D. [address] [place] [phone] [facility] Referral ID Status Reason Start Date Expiration Date Visits Re quested Visits Authorized [id number] Closed 12/10/2023 12/09/2026 1 1 Scheduling Instructions 12:[address] Blas RACT WRITER Encounter Details Date Type Department Care Team (Late st Contact Info) Description 12/10/2023 Orders Only Division of Metabolic and Abdominal Wall Reconstructive Surgery in [place], [place] [address] [place] [phone] Gaye Enriquez RAlexisNAlexis [address] [place] [phone] Social History Tobacco Use Types Packs/Day Years [...] often do you attend chur ch or mormonism services? Never 01/04/2023 Do you belong to any clubs o r organizations such as denominational groups, unions, fraternal or athletic groups, or [...] Answer Date Recorded PHQ-2 Score 0 08/27/2022 [facility] of Occupat ional Health - Occupational [...] place to sleep or slept in a care home (including now)? No 01/04/2023 Depression Answer Date [...] Master's degree (e.g., MA, MS, Parker, MEd, MOUNTER SAXOPHONES, DAVID) 05/04/2022 Sex and Gender Information Value [...] Department of Nutrition and Diabetes Education in [place], [place] [address] [place] [address] Eleazar Cabrera APRN, C.N.P., D.N.P. [address] [place] [address] Scheduled Referrals Name Type Priority Associated Diagnoses Orde r Schedule General Surgery office visit (clinic) Outpatient Referral Routine Expected: 12/19/2023, Expires: 03/10/2025 documented as of this encounter Visit Diagnoses Not on filedocumented in this encounter Additional Health Concerns Assessment Noted Time PHQ-9 Depression Total Score: 1 08/27/20 22 3:21 PM CDT documented as of this encounter Care Teams Mysql Database Administrator Relationship Specialty Start Date End Date Elsewhere, Pcp PCP - General Internal Medicine 05/04/22 documented as of this encounter
--- OUTSIDE RECORDS SUMMARY | 2024-03-17 07:57 | XMS_ITS | Encounter Summary ---
Author Name Unknown Organization [facility] Address [address] [place] [address] Care Team Providers Care Procedures Tech Name Role Phone Elsewhere, Pcp Primary Care Provider Unavailabl e Reason for Visit * Reason Onset Date Comments Follow-up Orders 11/28/2023 Encounter Details Date Type Department Care Team (Latest Contact Info) Description 11/28/2023 Clinical Communication Division of Endocrinology in [place], [place] [address] [place] [address] Eleazar Cabrera APRN, C.N.P., D.N.P. [address] [place] [address] Follow-up Orders Social History Tobacco Use Types Packs/Day Years [...] often do you attend chur ch or gnosticism services? Never 01/04/2023 Do you belong to any clubs o r organizations such as temple groups, unions, fraternal or athletic groups, or [...] Answer Date Recorded PHQ-2 Score 0 08/27/2022 [facility] of Occupat ional Health - Occupational [...] place to sleep or slept in a fpc (including now)? No 01/04/2023 Depression Answer Date [...] Master's degree (e.g., MA, MS, Parker, MEd, ABSORBER OPERATOR, DAVID) 05/04/2022 Sex and Gender Information [...] Department of Nutrition and Diabetes Education in [place], [place] [address] [place] [address] Eleazar Cabrera APRN, C.N.P., D.N.P. [address] [place] [address] documented as of this encounter Visit Diagnoses Not on filedocumented in this encounter Additional Health Concerns Assessment Noted Time PHQ-9 Depression Total Score: 1 08/27/20 22 3:21 PM CDT documented as of this encounter Care Teams Procedures Tech Relationship Specialty Start Date End Date Elsewhere, Pcp PCP - General Internal Medicine 05/04/22 documented as of this encounter
--- OUTSIDE RECORDS SUMMARY | 2024-03-17 07:57 | XMS_ITS | Encounter Summary ---
Author Name Unknown Organization [facility] Address [address] [place] [address] Care Team Providers Care Air Cargo Specialist Supervisor Name Role Phone Elsewhere, Pcp Primary Care Provider Unavailabl e Encounter Details Date Type Department Care Team (Late st Contact Info) Description 01/15/2024 CPAP Download Remote Patient Monitoring [facility] [address] [place] [address] [facility], Provider Social History Tobacco Use Types Packs/Day Years Used Date Smoking Tobacco: Never Smokeless Tobacco: Never Alcohol Use Standard Drinks/Week Comments Yes 0 (1 standard drink = 0.6 oz pur e alcohol) Infrequent, 1 time a month [facility] Utilities Answer Date Recorded In the past [...] often do you attend chur ch or christianity services? Never 01/04/2023 Do you belong to any clubs o r organizations such as congregational groups, unions, fraternal or athletic groups, or [...] Answer Date Recorded PHQ-2 Score 0 08/27/2022 [facility] of Occupat ional Health - Occupational [...] your living situation today? [facility] 02/06/2024 Education Answer Date Recorded What is the highest level of school you have completed or the highest degree you have received? Master's degree (e.g., MA, MS, Parker, MEd, FRONT DESK SUPERVISOR, DAVID) 05/04/2022 Sex and Gender Information Value [...] Department of Nutrition and Diabetes Education in [place], [place] [address] [place] [address] Eleazar Cabrera APRN, C.N.P., D.N.P. [address] [place] [address] documented as of this encounter Visit Diagnoses Not on filedocumented in this encounter Additional Health Concerns Assessment Noted Time PHQ-9 Depression Total Score: 1 08/27/20 22 3:21 PM CDT documented as of this encounter Care Teams Air Cargo Specialist Supervisor Relationship Specialty Start Date End Date Elsewhere, Pcp PCP - General Internal Medicine 05/04/22 documented as of this encounter
--- OUTSIDE RECORDS SUMMARY | 2024-03-17 07:57 | XMS_ITS | Encounter Summary ---
Author Name Unknown Organization [facility] Address [address] [place] [address] Care Team Providers Care Ediphone Operator Name Role Phone Elsewhere, Pcp Primary Care Provider Unavailabl e Encounter Details Date Type Department Care Team (Latest Contact Info) Description 12/10/2023 7:50 AM WAVE SOLDER OFFBEARER Ancillary Procedure Department of Gastroenterology Social History Tobacco Use Types Packs/Day Years [...] week 01/04/2023 How often do you attend [facility] or taoist services? Never 01/04/2023 Do you belong to any clubs o r organizations such as yazidi groups, unions, fraternal or athletic groups, or [...] Answer Date Recorded PHQ-2 Score 0 08/27/2022 [facility] of Occupat ional Health - Occupational Stress [...] place to sleep or slept in a longterm (including now)? No 01/04/2023 Depression Answer Date [...] Master's degree (e.g., MA, MS, Parker, MEd, SHOWCASE MAKER, DAVID) 05/04/2022 Sex and Gender Information Value [...] Department of Nutrition and Diabetes Education in [place], [place] [address] [place] [address] Eleazar Cabrera APRN, C.N.P., D.N.P. [address] [place] [address] documented as of this encounter Procedures Procedure Name Priority Date/Time Associated Diagnosis Comments GASTROENTEROLOGY IMAGE EXAM Routine 12/10/2023 7:50 AM WAVE SOLDER OFFBEARER documented in this encounter Results * Upper GI endoscopy-Gastroenterology Image Exam (12/10/2023 7:50 AM WAVE SOLDER OFFBEARER) 12/10/2023 7:50 AM WAVE SOLDER OFFBEARER Narrative IIMS - 12/10/2023 9:59 AM WAVE SOLDER OFFBEARER This order has been created and auto-finalized to support the import of images acquired without order. The clinical documentation to support these images can be found on the encounter that produced images. Provider Not In System IMG NON RAD IMAGI NG PROCEDURES IIMS NA documented in this encounter Visit Diagnoses Not on filedocumented in this encounter Additional Health Concerns Assessment Noted Time PHQ-9 Depression Total Score: 1 08/27/20 22 3:21 PM CDT documented as of this encounter Care Teams Ediphone Operator Relationship Specialty Start Date End Date Elsewhere, Pcp PCP - General Internal Medicine 05/04/22 documented as of this encounter
--- OUTSIDE RECORDS SUMMARY | 2024-03-17 07:57 | XMS_ITS | Encounter Summary ---
Author Name Unknown Organization [facility] Address [address] [place] [address] Care Team Providers Care Spark Tester Name Role Phone Elsewhere, Pcp Primary Care Provider Unavailabl e Encounter Details Date Type Department Care Team (Late st Contact Info) Description 11/14/2023 CPAP Download Remote Patient Monitoring [facility] [address] [place] [address] [facility], Provider Social History Tobacco Use Types Packs/Day Years Used Date Smoking Tobacco: Never Smokeless Tobacco: Never Alcohol Use Standard Drinks/Week Comments Yes 0 (1 standard drink = 0.6 oz pur e alcohol) Infrequent, 1 time a month [facility] Utilities Answer Date Recorded In the [...] often do you attend chur ch or baptist services? Never 01/04/2023 Do you belong to any clubs o r organizations such as baptist groups, unions, fraternal or athletic groups, or [...] Answer Date Recorded PHQ-2 Score 0 08/27/2022 [facility] of Occupat ional Health - Occupational Stress [...] your living situation today? I have a [facility] place to live 02/06/2024 Education Answer Date Recorded What is the highest level of school you have completed or the highest degree you have received? Master's degree (e.g., MA, MS, Parker, MEd, MANAGER PRODUCT, DAVID) 05/04/2022 Sex and Gender Information Value [...] Department of Nutrition and Diabetes Education in [place], [place] [address] [place] [address] Eleazar Cabrera APRN, C.N.P., D.N.P. [address] [place] [address] documented as of this encounter Visit Diagnoses Not on filedocumented in this encounter Additional Health Concerns Assessment Noted Time PHQ-9 Depression Total Score: 1 08/27/20 22 3:21 PM CDT documented as of this encounter Care Teams Spark Tester Relationship Specialty Start Date End Date Elsewhere, Pcp PCP - General Internal Medicine 05/04/22 documented as of this encounter
--- OUTSIDE RECORDS SUMMARY | 2024-03-17 07:57 | XMS_ITS | Continuity of Care Document ---
Author Name Unknown Organization [facility] Address [address] [place] [address] [address] [address] Insurance Providers Payer Plan Claims Address Claims Phone Policy Number Group Number Relation Employer Guarantor Name Guarantor Guarantor Address Guarantor Phone Blue Cross Blue Shield BLUE [employer] BLUE SHIEL D [address], [place] [address] tel:[phone] [id number] Self Toby Streeter [address] [place] [address] [place] 220G [place] 220G [id number] Self Toby [place] 1980 [place] [address] Blue Cross 220G Blue Cross 220G [id number] Self Toby Yolande Ferdinand 1980 [place] [address] Problems Condition ICD9 code ICD10 code SNOMED code Start Date End Date S tatus Encounter for therapeutic drug level monitoring Z51.81 Final Encounter for therapeutic drug level monitoring Z51.81 Admitting Encounter for therapeutic drug level monitoring Z51.81 Final Pain in left knee M25.562 Final Encounter for other preprocedural examination Z01.818 Final Gout, unspecified M10.9 Final Results No Results Allergies, adverse reactions, alerts No known allergies and adverse reactions Medications No administered medications reported Vital Signs No vital signs reported Social History No smoking Hx information available
--- OUTSIDE RECORDS SUMMARY | 2024-03-17 07:57 | XMS_ITS | Encounter Summary ---
Author Name Unknown Organization [facility] Address [address] [place] [address] Care Team Providers Care Hospice Care Transitions Coordinator Name Role Phone Elsewhere, Pcp Primary Care Provider Unavailabl e Reason for Visit * Auth/Cert (Routine) Specialty Diagnoses / Procedures Referred By Javed garrison Referred To Contact Diagnoses Surgery Bariatric Status Post Gastroesophageal Reflux Disease Without Esophagitis Procedures EGD (ESOPHAGEALGASTRODUODENOSCOPY) Referral ID Status Reason Start Date Expiration Date Visits Re quested Visits Authorized [id number] 1 1 Encounter Details Date Type Department Care Team (Latest Contact Info) Description 12/10/2023 7:49 AM BEHAVIORAL HEALTH THERAPIST - 12/10/2023 11:59 PM [facility] Encounter Department of Radiology, [facility] in [place], [place] [address] [place] [phone] Vani Apodaca APRN, C.N.P., D.N.P. [address] [place] [phone] Discharge Disposition: Home or Self Care Social [...] How often do you attend chur or bahai services? Never 01/04/2023 Do you belong to any clubs o r organizations such as sikhism groups, unions, fraternal or athletic groups, or [...] Answer Date Recorded PHQ-2 Score 0 08/27/2022 [facility] [place] of Occupat ional Health - Occupational Stress [...] place to sleep or slept in a jail (including now)? No 01/04/2023 Depression Answer Date [...] Master's degree (e.g., MA, MS, Parker, MEd, LOFTER, DAVID) 05/04/2022 Sex and Gender Information Value [...] (50 mcg total) by mouth daily. 11/09/2023 cyanocobalamin (VITAMIN B12) 1,000 mcg/mL injection Inject 1 mL (1,000 mcg total) intramuscularly every 30 (thirty) days. 3 mL 3 12/09/2023 DME CPAPIndications:Obs tructive Sleep Apnea Adult DME Order 1 each 02/15/2023 fexofenadine (FRANCES) 180 mg tablet Take 180 mg by mouth daily as needed (hayfever). 05/29/2022 ISOtretinoin (ACCUTANE) 40 mg capsule Take [...] Department of Nutrition and Diabetes Education in [place], [place] [address] [place] [address] Eleazar Cabrera APRN, C.N.P., D.N.P. [address] [place] [address] documented as of this encounter Procedures Procedure Name Priority Date/Time Associated Diagnosis Comments FL FLUORO LESS THAN 1 HOUR RAD - Routine (most inpatients and all outpatients) 12/10/2023 9:05 AM BEHAVIORAL HEALTH THERAPIST Surgery Bariatric Status Post Gastroesophageal Reflux Disease Without Esophagitis documented in this encounter Results * FL Fluoro Less Than 1 Hour (12/10/2023 9:05 AM BEHAVIORAL HEALTH THERAPIST) Narrative ERCP LOS RST - 12/10/2023 9:07 AM BEHAVIORAL HEALTH THERAPIST This exam does not require a radiologist review or interpretation. Please refer to the patient's medical record on this date for clinical details. Vani Apodaca APRN, C.N.P., D.N.P. I MG FLUOROSCOPY PROCEDURES ERCP LOS RST documented in this encounter Visit Diagnoses Not on filedocumented in this encounter Additional Health Concerns Assessment Noted Time PHQ-9 Depression Total Score: 1 08/27/20 22 3:21 PM CDT documented as of this encounter Care Teams Hospice Care Transitions Coordinator Relationship Specialty Start Date End Date Elsewhere, Pcp PCP - General Internal Medicine 05/04/22 documented as of this encounter
--- OUTSIDE RECORDS SUMMARY | 2024-03-17 07:57 | XMS_ITS | Encounter Summary ---
Author Name Unknown Organization [facility] Address [address] [place] [address] Care Team Providers Care Central Office Equipment Engineer Name Role Phone Elsewhere, Pcp Primary Care Provider Unavailabl e Reason for Visit * Auth/Cert (Routine) Specialty Diagnoses / Procedures Referred By Javed t Referred To Contact Diagnoses Surgery Bariatric Status Post Gastroesophageal Reflux Disease Without Esophagitis Procedures EGD (ESOPHAGEALGASTRODUODENOSCOPY) Referral ID Status Reason Start Date Expiration Date Visits Re quested Visits Authorized [id number] 1 1 Encounter Details Date Type Department Care Team (Late st Contact Info) Description 12/10/2023 7:59 AM [employer] GROUND MANAGER Anesthesia Event Division of Gastroenterology in [place], [place] [address] [place] [phone] Jacobo Whittington APRN, CRNA, D.N.P. [address] [place] [phone] Michela Bethea APRN, CRNA, DNAP [address] [place] [phone] Anesthesia Record Procedure Summary Procedure Name Responsible Anesthesiologist Anesthesia Start Time Anesthesia Stop Time EGD (ESOPHAGEALGASTRODU ODENOSCOPY) Jacobo Whittington APRN, CRNA, D.N.P. 12/10/23 0759 12/10/23 0913 Events Date Time Event Comment 12/10/2023 0759 An Start Machine/Equipme nt Checked Infection Precautions Followed Procedure/Site Verified NPO Status Verified Supine Standard ASA Monitors Applied 0806 An Induction 0807 An Intubation 0817 Turnover to Proceduralist 0817 Proc Start 0858 Turnover to ANE Staff 0859 Proc Fin 0906 Airway Removal Criteria Met 0906 Extubation/Airway Removed 0907 an stop data 0913 An End I completed my handoff to the receiving staff during which we 1. Identified the patient 2. Identified the responsible provider 3. Reviewed the pertinent medical history 4. Discussed the surgical course 5. Reviewed intra-op anesthesia management and issues during anesthesia 6. Set expectations for post-procedure period 7. Allowed opportunity for questions and acknowledgement of understanding. Meds Name Total fentanyl injection 50 mcg/mL 100 mcg lidocaine 2% (mg) injection 100 mg succinylcholine 20 mg/mL injection 140 m g ondansetron 4 mg/2 mL injection 4 mg glycopyrrolate 0.2 mg/mL injection 0.2 m g propofol 10 mg/mL infusion 1,029.16 mg propofol 10 mg/mL injection 250 mg dexAMETHasone (DECADRON) injection 4 mg/ mL 8 mg Lactated Ringers Free Drip 1,100 mL * Agents No agents on file. * Blood No blood administrations on file. Lines, Drains, and Airways Type Details Placement Removal Scope Sites Abdomen; Right; Mid, Upper; Mid, Lower; Left, Medial, Upper; Left, Medial, Lower; Left, Lateral, Upper 11/08/23 1156 by Peripheral IV Placement Date: 11/25 05/18; Placement Time: 729; Catheter Size: 20 G; Orientation: Distal, Lower, Posterior, Right; Location: Forearm; Site Prep: Alcohol; Technique: Anatomical landmarks; Insertion Attempts: 1; Removal Date: 12/10/23; Removal Time: 932; Removal Reason: Patient discharged 12/10/23 0730 by Verenice Hernandez, R.NAlexis 12/10/23 0933 by Julissa Dupree RAlexisNAlexis ETT Placement Date: 11/25 05/18; Placement Time: 08 (created via procedure documentation); Mask Ventilation: Not attempted; Technique: Video laryngoscopy; Type: Standard ETT; Single Lumen Tube Size: 7.5 mm; Cuffed: Yes; Location: Oral; Grade View: Grade 1; Insertion Attempts: 1; Placement Verification: Bilateral breath sounds, Positive ETCO2, Symmetrical chest wall movement; Removal Date: 12/10/23; Removal Time: 90512/10/23 08 by Jacobo Whittington APRN, EDWARDO, D.N.P. 12/10/23 0906 by Jacobo Whittington APRN, CRNA, D.N.P. documented in this encounter Social History Tobacco Use Types Packs/Day Years [...] How often do you attend chur or restorationism services? Never 01/04/2023 Do you belong to any clubs o r organizations such as faith groups, unions, fraternal or athletic groups, or [...] Answer Date Recorded PHQ-2 Score 0 08/27/2022 [facility] of Occupat ional Health - Occupational [...] place to sleep or slept in a mcc (including now)? No 01/04/2023 Depression Answer Date [...] Master's degree (e.g., MA, MS, Parker, MEd, DYEHOUSE WORKER, DAVID) 05/04/2022 Sex and Gender Information Value Date Recorded Sex Assigned at Male 03/08/2022 9:07 PM CDT Gender Identity Male 03/08/2022 9:07 PM CDT Sexual Orientation Straight 03/08/2022 9: 07 PM CDT documented as of this encounter OR Notes * Anesthesia Postprocedure Evaluation - Jacobo Whittington APRN, CRNA, D.N.P. - 12/10/2023 9:13 AM CST Patient: Toby Streeter Procedure Summary Date: 12/10/23 Room / Location: Division of Gastroenterology in [place], [place] Anesthesia Start: 758 Anesthesia Stop: 912 Procedure: EGD (ESOPHAGEALGASTRODUODENOSCOPY) Diagnosis: Surgery Bariatric Status Post Gastroesophageal Reflux Disease Without Esophagitis Surgery Bariatric Status Post Gastroesophageal Reflux Disease Without Esophagitis Scheduled Providers: Jacobo Whittington APRN, CRNA, D.N.P. Responsible Provider: Jacobo Whittington APRN, CRNA, D.N.P. Anesthesia Type: general ASA Status: 2 Anesthesia Type: general Last vitals Vitals Value Taken Time BP 111/73 12/10/23 0912 Temp 36.8 ??C 12/10/23 09 Pulse 73 12/10/23 0912 Resp 19 12/10/23 09 SpO2 96 % 12/10/23911 Vitals shown include unfiled device data. Please reference Vitals flowsheet for most recent vital signs. Anesthesia Post Evaluation Patient Disposition: dismissal Cardiovascular status: hemodynamics (HR & BP) acceptable Respiratory status: patent airway with spontaneous effort Temperature: normothermic Oxygen requirements: room air Level of consciousness: awake Pain score: pain adequately controlled and/or at baseline Post Op nausea/vomiting: none Hydration status: euvolemic [employer]AMPING GROUND MANAGER * Anesthesia Procedure Notes - Jacobo Whittington APRN, CRNA, D.N.P. - 12/10/2023 8:16 AM CSTAssociated Order(s): Airway Airway Date/Time: 12/10/2023 8:07 AM Performed by: Jacobo Whittington APRN, CRNA, Michele.N.P. Authorized by: Jacobo Whittington APRN, CRNA, D.N.P. Patient location during procedure: OR / Procedure Area PROCEDURE DETAILS: Mask difficulty assessment: not attempted Final airway type: video laryngoscope Laryngeal Manipulation: no Final best view of glottic structures - Cormack/Lehane Score: grade 1 ETT location: oral VL device: glide scope Greenleaf scope blade size: 4 Tube size: 7.5 ETT distance at teeth/gum: 23 Oral tube type: standard ETT Cuffed: yes Leak Test Performed: no Number of attempt to successful placement: 1 Airway confirmation: bilateral breath sounds, positive ETCO2 and bilateral chest rise Other previous techniques attempted: none PRE PROCEDURE DETAILS: Pre evaluation for airway management: procedure Urgency: elective Preop assessment of probable difficulty: questionable / suspicious difficult airway Preoxygenation: bag valve mask SEDATION / ANESTHESIA Anesthesia method: anesthesia POST PROCEDURE DETAILS: Procedure outcome: successful Notable Events: no complications [employer] CAMPING GROUND MANAGER * Anesthesia Preprocedure Evaluation - Jacobo Whittington APRN, CRNA, D.N.P. - 12/10/2023 7:49 AM CST Preprocedure Anesthesia & H&P Assessment Procedure Summary Date/Time: 12/10/23 0800 Scheduled providers: Jacobo Whittington APRN, CRNA, D.N.P. Procedure: EGD (ESOPHAGEALGASTRODUODENOSCOPY) Diagnosis: Surgery Bariatric Status Post [Z98.84] Gastroesophageal Reflux Disease Without Esophagitis [K21.9] Surgery Bariatric Status Post [Z98.84] Gastroesophageal Reflux Disease Without Esophagitis [K21.9] Location: Division of Gastroenterology in [place], [place] Pertinent components of the patient's history including current problem list, medical history, surgical history, family history, social history, medications and allergies were reviewed. Present illness and pre-op diagnosis were confirmed. The planned surgery / procedure was verified with the patient / legal guardian. The patient's general health condition remains unchanged RELEVANT COMORBID CONDITIONS Other (+) Body Mass Index 45.0 To 49.9 Adult (HCC) (+) Morbid Obesity Body Mass Index 50.0-59.9 Adult (HCC) OBJECTIVE PHYSICAL EXAMINATION Airway (HEENT) Mallampati: II TM Distance: >3 FB Neck ROM: Full Mouth Opening: >3 cm Cardiovascular Rhythm: Regular Rate: Normal Cardiovascular Assessment: cardiovascular normal Functional Capacity: >4 METS Pulmonary Pulmonary Assessment: Diminished General / Constitutional Constitutional Assessment: Obese General State of Health:: calm Neurological Neurologic Assessment: alert and alert and oriented x 3 Dental Dental Assessment: dentition intact ASSESSMENT / PLAN ANESTHESIA PLAN ASA: 2 Anesthesia Plan: general Patient seen and allergies reviewed, anesthesia plan and risks discussed directly with patient /legal guardian or through an belt repairer. Risks/Benefits/Alternatives of Blood transfusion discussed with patient / legal guardian, includingan opportunity to ask questions and/or decline some or all transfusion therapies. The patient / legal guardian consented to the use of all blood products, as deemed medically necessary Approval to Proceed: approved for anesthesia [employer] CAMPING GROUND MANAGER documented in this encounter Plan of Treatment Upcoming Encounters Date Type Department Care Team (Late st Contact Info) Description 05/21/2024 1:00 PM CDT Telemedicine Department of Nutrition and Diabetes Education in [place], [place] [address] [place] [phone] Eleazar Cabrera APRN, C.N.P., D.N.P. [address] [place] [address] documented as of this encounter Procedures Procedure Name Priority Date/Time Associated Diagnosis Comments LDA ANE ENDOTRACHEAL AIRWAY Routine 12/10/2023 8:07 AM [employer]OUND MANAGER documented in this encounter Results * LDA ANE ENDOTRACHEAL AIRWAY (12/10/2023 8:07 AM [employer] GROUND MANAGER) Narrative Jacobo Whittington APRN, CRNA D.N.P. - 12/10/2023 8:07 AM [employer] GROUND MANAGER Jacobo Whittington APRN, CRNA, D.N.P. ? 12/10/2023 ??8:17 AM Airway Date/Time: 12/10/2023 8:07 AM Performed by: Jacobo Whittington APRN, CRNA, D.N.P. Authorized by: Jacobo Whittington APRN, CRNA, D.N.P. ?? Patient location during procedure: OR / Procedure Area PROCEDURE DETAILS: Mask difficulty assessment: not attempted Final airway type: video laryngoscope Laryngeal Manipulation: no ?? Final best view of glottic structures - Cormack/Lehane Score: grade 1 ETT location: oral VL device: glide scope Greenleaf scope blade size: 4 Tube size: 7.5 ETT distance at teeth/gum: 23 Oral tube type: standard ETT Cuffed: yes Leak Test Performed: no ?? Number of attempt to successful placement: 1 Airway confirmation: bilateral breath sounds, positive ETCO2 and bilateral chest rise Other previous techniques attempted: none PRE PROCEDURE DETAILS: Pre evaluation for airway management: procedure Urgency: elective Preop assessment of probable difficulty: questionable / suspicious difficult airway Preoxygenation: bag valve mask SEDATION / ANESTHESIA Anesthesia method: anesthesia POST PROCEDURE DETAILS: ? Procedure outcome: successful ?? Notable Events: no complications Jacobo Whittington APRN, CRNA, D.N.P. AN ESTHESIA ORDERABLES documented in this encounter Visit Diagnoses Not on filedocumented in this encounter Administered Medications Inactive Administered Medications - up to 3 most recent administrations Medication Order MAR Action Action Date Dose Rate Site dexAMETHasone injection (DECADRON) intravenous, As needed, Starting on Sat12/10/23 at 0813, Anesthesia Intra-op Given 12/10/2023 8:13 AM [employer] MANAGER 8 mg fentaNYL injection (SUBLIMAZE) intravenous, As needed, Starting on Sat12/10/23 at 0806, Anesthesia Intra-op Given 12/10/2023 8:06 AM [employer] GROUND MANAGER 100 mcg glycopyrrolate injection (ROBINUL) intravenous, As needed, Starting on Sat12/10/23 at 0806, Anesthesia Intra-op Given 12/10/2023 8:06 AM [employer] GROUND MANAGER 0.2 mg Lactated Ringer's intravenous, Continuous Infusion: Per Instructions PRN, Starting on Sat12/10/23 at 0757, Anesthesia Intra-op New Bag 12/10/2023 8:40 AM [employer] GROUND MANAGER New Bag 12/10/2023 7:57 AM [employer] GROUND MANAGER lidocaine (PF) (cardiac) injection intravenous, As needed, Starting on Sat12/10/23 at 0806, Anesthesia Intra-op Given 12/10/2023 8:06 AM [employer] GROUND MANAGER 100 mg ondansetron (PF) injection (ZOFRAN) intravenous, As needed, Starting on Sat12/10/23 at 0813, Anesthesia Intra-op Given 12/10/2023 8:13 AM [employer] GROUND MANAGER 4 mg propofol 10 mg/mL infusion (DIPRIVAN) intravenous, Continuous Infusion: Per Instructions PRN, Starting on Sat12/10/23 at 0806, Anesthesia Intra-op Rate/Dose Change 12/10/2023 8:27 AM [employer] GROUND MANAGER 125 mcg/kg/min 109.875 mL/hr New Bag 12/10/2023 8:06 AM [employer] GROUND MANAGER 150 mcg/kg/min 131.85 mL /hr propofoL injection (DIPRIVAN) intravenous, As needed, Starting on Sat12/10/23 at 0806, Anesthesia Intra-op Given 12/10/2023 8:50 AM [employer] GROUND MANAGER 50 mg Given 12/10/2023 8:06 AM [employer]OUND MANAGER 200 mg succinylcholine (PF) injection (ANECTINE) intravenous, As needed, Starting on Sat12/10/23 at 0806, Anesthesia Intra-op Given 12/10/2023 8:06 AM [employer] MANAGER 140 mg documented in this encounter Additional Health Concerns Assessment Noted Time PHQ-9 Depression Total Score: 1 08/27/20 22 3:21 PM CDT documented as of this encounter Care Teams Central Office Equipment Engineer Relationship Specialty Start Date End Date Elsewhere, Pcp PCP - General Internal Medicine 05/04/22 documented as of this encounter
--- OUTSIDE RECORDS SUMMARY | 2024-03-17 07:57 | XMS_ITS | Encounter Summary ---
Author Name Unknown Organization [facility] Address [address] [place] [address] Care Team Providers Care Platinumsmith Name Role Phone Elsewhere, Pcp Primary Care Provider Unavailabl e Reason for Referral * Outpatient (Routine) - Closed Specialty Diagnoses / Procedures Referred By Javed garrison Referred To Contact Diagnoses Surgery Bariatric Status Post Gastroesophageal Reflux Disease Without Esophagitis Procedures EGD (EsophagealGastroDuodenoscopy ) ME EGD TRANSORAL DX Vani Apodaca APRN, C.N.P., D.N.P. [address] [place] [address] [facility] Referral ID Status Reason Start Date Expiration Date Visits Re quested Visits Authorized [id number] Closed 11/28/2023 11/27/2024 1 1 FIC OPERATOR Reason for Visit * Auth/Cert (Routine) Specialty Diagnoses / Procedures Referred By Javed garrison Referred To Contact Diagnoses Surgery Bariatric Status Post Gastroesophageal Reflux Disease Without Esophagitis Procedures EGD (ESOPHAGEALGASTRODUODENOSCOPY) Referral ID Status Reason Start Date Expiration Date Visits Re quested Visits Authorized [id number] 1 1 Encounter Details Date Type Department Care Team (Latest Contact Info) Description 12/10/2023 6:50 AM TRAFFIC OPERATOR - 12/10/2023 9:57 AM TRAFFIC OPERATOR Hospital Encounter Division of Gastroenterology in [place], [place] [address] [place] [phone] Vani Apodaca APRN, C.N.P., D.N.P. [address] [place] [phone] Jacobo Whittington APRN, CRNA, D.N.P. [address] [place] [address] Surgery Bariatric Status Post; Gastroesophageal Reflux Disease Without Esophagitis Discharge Disposition: Home or Self Care Social [...] often do you attend chur ch or scientologist services? Never 01/04/2023 Do you belong to any clubs o r organizations such as adventist groups, unions, fraternal or athletic groups, or [...] Answer Date Recorded PHQ-2 Score 0 08/27/2022 [facility] of Occupat ional Health - Occupational Stress [...] Master's degree (e.g., MA, MS, Parker, MEd, INSPECTOR SCREEN PRINTING, DAVID) 05/04/2022 Sex and Gender Information Value Date Recorded Sex Assigned at Male 03/08/2022 9:07 PM CDT Gender Identity Male 03/08/2022 9:07 PM CDT Sexual Orientation Straight 03/08/2022 9: 07 PM CDT documented as of this encounter Last Filed Vital Signs Vital Sign Reading Time Taken Comments Blood Pressure 104/70 12/10/2023 9:35 AM TRAFFIC OPERATOR Pulse 64 12/10/2023 9:36 AM TRAFFIC OPERATOR Temperature 36.8 ??C (98.2 ??F) 12/10/2023 9:12 AM CS T Respiratory Rate 15 12/10/2023 9:36 AM TRAFFIC OPERATOR Oxygen Saturation 97% 12/10/2023 9:36 AM TRAFFIC OPERATOR Inhaled Oxygen Concentration - - Weight 147 kg (323 lb) 12/10/2023 7:24 AM TRAFFIC OPERATOR Height 185.4 cm (6' 1) 12/10/2023 7:24 AM TRAFFIC OPERATOR Body Mass Index 42.61 12/10/2023 7:24 AM TRAFFIC OPERATOR documented in this encounter Discharge Instructions * Discharge Instr - Other Orders* Julissa Dupree, R.N. - 12/10/2023 9:16 AM TRAFFIC OPERATOR You have no medication or dietary restrictions following today's GI procedure. FIC OPERATOR documented in this encounter Medications at Time of Discharge [...] Department of Nutrition and Diabetes Education in [place], [place] [address] [place] [address] Eelazar Cabrera APRN, C.N.P., D.N.P. [address] [place] [address] documented as of this encounter Procedures Procedure Name Priority Date/Time Associated Diagnosis Comments FL FLUORO LESS THAN 1 HOUR RAD - Routine (most inpatients and all outpatients) 12/10/2023 9:05 AM TRAFFIC OPERATOR Surgery Bariatric Status Post Gastroesophageal Reflux Disease Without Esophagitis UPPER GI ENDOSCOPY Routine 12/10/2023 7:50 AM TRAFFIC OPERATOR Surgery Bariatric Status Post Gastroesophageal Reflux Disease Without Esophagitis EGD (ESOPHAGEALGASTRO DUODENOSCOPY) Routine 12/10/2023 7:50 AM TRAFFIC OPERATOR Surgery Bariatric Status Post Gastroesophageal Reflux Disease Without Esophagitis documented in this encounter Results * FL Fluoro Less Than 1 Hour (12/10/2023 9:05 AM TRAFFIC OPERATOR) Narrative ERCP LOS RST - 12/10/2023 9:07 AM TRAFFIC OPERATOR This exam does not require a radiologist review or interpretation. Please refer to the patient's medical record on this date for clinical details. Vani Apodaca APRN, C.N.P., D.N.P. I MG FLUOROSCOPY PROCEDURES ERCP LOS RST * Upper GI Endoscopy (12/10/2023 7:50 AM TRAFFIC OPERATOR) 12/10/2023 7:50 AM TRAFFIC OPERATOR Impressions [facility] - 12/10/2023 9:57 AM TRAFFIC OPERATOR Post-op Diagnoses: ? - Z-line regular, 41 cm from the incisors. ? - Normal esophagus. ? - Intact sleeve gastrectomy, without kinking, stenosis or ulceration. ? Bilious reflux seen. ? - Widely patent duodenoenterostomy (FELIPE-S anatomy) with easily ? traversed biliopancreatic limb and common channel, with no evidence of ? marginal ulceration or stenosis. Both limbs examined for >100 cm, no ? evidence of obstruction. ? - Mild angulation at common channel os however this was not flow ? limiting on contrast injection. In the absence of a stenosis, dilation ? not indicated. ? - No specimens collected. Narrative [facility] - 12/10/2023 9:57 AM [facility] GI Patient Name: Toby Streeter Date of : 1980 Age: 43 Procedure Date: 12/10/2023 Procedure: ? Upper GI endoscopy Providers: ? Severino Doll MD, MAIRA Jones ? (Fellow) Referring Provider: ?Vani Apodaca Pre-op Diagnoses: ?Heartburn, Suspected gastro-esophageal reflux ? disease, Management of operative complication from ? previous surgery Recommendation: ? - The patient will be observed post-procedure, until all discharge ? criteria are met. ? - Resume previous diet. Advance as tolerated ? - Return to referring physician. Can consider treatment with sucralfate ? and/or bile acid sequestrants. ? - If symptoms progress or continue for more than 4 more weeks, consider ? upper GI series for a more sensitive exam at the anastomosis given the ? limitations of a supine contrast injection during EGD ? - Findings discussed with patient. Findings: ? The Z-line was regular and was found 41 cm from the incisors. ? The examined esophagus was normal. No Landeros's esophagus, or ? esophagitis. ? Evidence of a sleeve gastrectomy was found in the stomach, with a sleeve ? length from Z-line to pylorus measuring 14 cm. This was characterized by ? healthy appearing mucosa and an intact appearance. There was no stenosis ? or kinking. Bilious reflux was seen intermittently. ? There was evidence of a patent duodenoenterostomy with an afferent ? (biliopancreatic) limb and efferent (common channel) limb, immediately ? distal to the pylorus. Site of anastomosis was healthy, had evidence of ? at least 1 surgical suture, no evidence of marginal ulceration or ? stenosis. There was a mild relative angulation towards the presumed ? common channel that was readily accessed. Contrast injection opacified ? both afferent and efferent limbs without evidence of obstruction, ? specifically from the angulation seen towards common channel.. The ? endoscope was inserted deep into both limbs (> 100 cm), with the limb ? originating from the left side presumably biliopancreatic (large pooling ? of bile; blind end or ampulla could not be reached). There was no ? evidence of obstruction, ulceration or abnormal pathology in either ? limb. Contrast was then injected at the anastomosis after using the PCF ? to intubate both limbs to the end of the PCF without complications. I ? personally interpreted the fluoroscopic images. The quality of images ? were excellent Procedural Details: ? The patient was seen, evaluated, history reviewed, airway and heart-lung ? exams were performed by licensed provider and were satisfactory for ? planned level of sedation care. ? The risks, benefits and alternatives for the procedure and sedation were ? discussed and informed consent was obtained. A procedural pause was ? conducted in the presence of assisting personnel to verify the correct ? patient identity and procedure to be performed. Throughout the ? procedure, the patient's blood pressure, pulse, and oxygen saturations ? were monitored continuously. The Gastroscope was introduced under direct ? vision through the mouth, and advanced to the second part of duodenum. ? The upper GI endoscopy was accomplished with ease. The patient tolerated ? the procedure well. Estimated Blood Loss: ?Estimated blood loss: none. Complications: ? No immediate complications. Sedation: ? Anesthesia was administered by an anesthesia professional. The following ? parameters were monitored: oxygen saturation, heart rate, blood ? pressure, respiratory rate, EKG, adequacy of pulmonary ventilation, and ? response to care. Attending Participation: I was present and participated during the entire ? procedure, including non-segura portions. Severino Doll MD 12/10/2023 9:56:51 AM This report has been signed electronically. Number of Addenda: 0 Vani Apodaca APRN, C.N.P., D.N.P. G I PROCEDURE ORDERABLES [facility] documented in this encounter Visit Diagnoses Diagnosis Surgery Bariatric Status Post Gastroesophageal Reflux Disease Without Esophagitis documented in this encounter Administered Medications Inactive Administered Medications - up to 3 most recent administrations Medication Order MAR Action Action Date Dose Rate Site acetaminophen injection 1,000 mg 1,000 mg, intravenous, at 400 mL/hr, Administer over 15 Minutes, Once as needed, other, If patient has not received in previous 6 hours, Starting on Sat12/10/23 at 0916, For 1 dose, PACU (only), Oral unless RASS less than -1 or nausea/vomiting. Do not use if given in last 6 hours, Restriction Criteria (Pharmacy will review and approve if criteria met): Unable to take or tolerate medications administered via the enteral route or orally (not just NPO) acetaminophen tablet 1,000 mg (TYLENOL) 1,000 mg, oral, Once as needed, other, If patient has not received in the previous 6 hours, Starting on Sat12/10/23 at 0916, For 1 dose, PACU (only), Oral unless RASS less than -1 or nausea/vomiting. Do not use if given in last 6 hours sodium chloride 0.9 % injection 3 mL 3 mL, intravenous, As needed, line care, Starting on Sat12/10/23 at 0744, Pre-Op, Prior to and following infusion and between multiple consecutive infusions documented in this encounter Active and Recently Administered Medications Times are shown in TRAFFIC OPERATOR. PRN Medication Order 12/08/2023 12/09/2023 12/10/2023 acetaminophen injection 1,000 mg(Linked Group 1) 1,000 mg, intravenous, at 400 mL/hr, Administer over 15 Minutes, Once as needed, other, If patient has not received in previous 6 hours, Starting on Sat12/10/23 at 0916, For 1 dose, PACU (only), Oral unless RASS less than -1 or nausea/vomiting. Do not use if given in last 6 hours, Restriction Criteria (Pharmacy will review and approve if criteria met): Unable to take or tolerate medications administered via the enteral route or orally (not just NPO) acetaminophen tablet 1,000 mg (TYLENOL)(Linked Group 1) 1,000 mg, oral, Once as needed, other, If patient has not received in the previous 6 hours, Starting on Sat12/10/23 at 0916, For 1 dose, PACU (only), Oral unless RASS less than -1 or nausea/vomiting. Do not use if given in last 6 hours fentaNYL injection 25 mcg (SUBLIMAZE) 25 mcg, intravenous, Every 2 min PRN, moderate pain or score 4-6 of 10, severe pain or score 7-10 of 10, Starting on Sat12/10/23 at 0916, PACU (only), Up to maximum total dose of 200 mcg haloperidol lactate injection 1 mg (HALDOL) 1 mg, intravenous, Every 6 hours PRN, nausea, vomiting, Starting on Sat12/10/23 at 0916, PACU (only), Total of 3 doses in 24 hour period. RASS must be -2 or higher to administer. If nausea and vomiting persists, move to granisteron. (order of antiemetic administration - ondansetron then haloperidol then granisetron) sodium chloride 0.9 % injection 3 mL 3 mL, intravenous, As needed, line care, Starting on Sat12/10/23 at 0744, Pre-Op, Prior to and following infusion and between multiple consecutive infusions Linked Groups Order Group 1: acetaminophen tablet 1,000 mg (TYLENOL)Jump to med 1,000 mg, oral, Once as needed, other, If patient has not received in the previous 6 hours, Starting on Sat12/10/23 at 0916, For 1 dose, PACU (only), Oral unless RASS less than -1 or nausea/vomiting. Do not use if given in last 6 hours Or acetaminophen injection 1,000 mgJump to med 1,000 mg, intravenous, at 400 mL/hr, Administer over 15 Minutes, Once as needed, other, If patient has not received in previous 6 hours, Starting on Sat12/10/23 at 0916, For 1 dose, PACU (only), Oral unless RASS less than -1 or nausea/vomiting. Do not use if given in last 6 hours, Restriction Criteria (Pharmacy will review and approve if criteria met): Unable to take or tolerate medications administered via the enteral route or orally (not just NPO) documented in this encounter Additional Health Concerns Assessment Noted Time PHQ-9 Depression Total Score: 1 08/27/20 22 3:21 PM CDT documented as of this encounter Care Teams Platinumsmith Relationship Specialty Start Date End Date Elsewhere, Pcp PCP - General Internal Medicine 05/04/22 documented as of this encounter
--- OUTSIDE RECORDS SUMMARY | 2024-03-17 07:57 | XMS_ITS | Encounter Summary ---
Author Name Unknown Organization [facility] Address [address] [place] [address] Care Team Providers Care Lactation Consultant Name Role Phone Elsewhere, Pcp Primary Care Provider Unavailabl e Encounter Details Date Type Department Care Team (Late st Contact Info) Description 12/15/2023 CPAP Download Remote Patient Monitoring [facility] [address] [place] [address] [facility], Provider Social History Tobacco Use Types Packs/Day Years Used Date Smoking Tobacco: Never Smokeless Tobacco: Never Alcohol Use Standard Drinks/Week Comments Yes 0 (1 standard drink = 0.6 oz pur e alcohol) Infrequent, 1 time a month [facility] Utilities Answer Date Recorded In the [...] often do you attend chur ch or yazidism services? Never 01/04/2023 Do you belong to any clubs o r organizations such as sabianism groups, unions, fraternal or athletic groups, or [...] your living situation today? I have a [facility] place to live 02/06/2024 Education Answer Date Recorded What is the highest level of school you have completed or the highest degree you have received? Master's degree (e.g., MA, MS, Parker, MEd, LABOR STANDARDS DIRECTOR, DAVID) 05/04/2022 Sex and Gender Information Value [...] Department of Nutrition and Diabetes Education in [place], [place] [address] [place] [address] Eleazar Cabrera APRN, C.N.P., D.N.P. [address] [place] [address] documented as of this encounter Visit Diagnoses Not on filedocumented in this encounter Additional Health Concerns Assessment Noted Time PHQ-9 Depression Total Score: 1 08/27/20 22 3:21 PM CDT documented as of this encounter Care Teams Lactation Consultant Relationship Specialty Start Date End Date Elsewhere, Pcp PCP - General Internal Medicine 05/04/22 documented as of this encounter
== END 2024-03-17 07:55 | disposition home or self-care (01) ==
PROVIDERS: PCP Physician Assistant Medical; Visit Provider Physician Assistant Medical
DX: Z13.220 Encounter for screening for lipoid disorders (principal); Z13.29 Encounter for screening for other suspected endocrine disorder; M10.9 Gout, unspecified; Z79.899 Other long term (current) drug therapy
CPT/HCPCS: 80048; 80061; 80076; 84443; 84550

== ENCOUNTER 2025-03-17 08:01 | Outpatient (CLI) | payer BC, SELFPAY | END 2025-03-17 08:02 | disposition home or self-care (01) | LOC: NFLDREF 03-19 03:54 | PROVIDERS: PCP Physician Assistant Medical; Referring Provider Physician Assistant Medical; Visit Provider Physician Assistant Medical | DX: E53.8 Deficiency of other specified B group vitamins (principal); L73.2 Hidradenitis suppurativa; M1A.9XX0 Chronic gout, unspecified, without tophus (tophi); E66.09 Other obesity due to excess calories; Z68.30 Body mass index [BMI] 30.0-30.9, adult; Z86.39 Personal history of other endocrine, nutritional and metabolic disease; Z13.6 Encounter for screening for cardiovascular disorders | CPT/HCPCS: 80053; 80061; 82306; 82607; 84443 ==

== ENCOUNTER 2025-04-13 07:02 | Outpatient (CLI) | payer BC, SELFPAY ==
--- NOTE | 2025-04-13 09:15 | P.ANES_ITS ---
Anesthesia Charges Start Date/Time Anesthesia Start Date: 04/13/25 Anesthesia Start Time: 08:16 Stop Date/Time Anesthesia Stop Date: 04/13/25 Anesthesia Stop Time: 09:12 Coding CPT Codes CPT Codes: ANES LWR INTST SCR COLSC - 08629 ([id number]) P2 - PATIENT W/MILD SYST DISEASE, QK - FOOD INSPECTOR 2-4 CNCRNT ANES PROC, QX - ENGRAVING PRESS OPERATOR SVC W/ MD MED DIRECTION
--- NOTE | 2025-04-13 09:15 | W.ANESCHARGE ---
Anesthesia Charges Start Date/Time Anesthesia Start Date: 04/13/25 Anesthesia Start Time: 08:16 Stop Date/Time Anesthesia Stop Date: 04/13/25 Anesthesia Stop Time: 09:12 Coding CPT Codes CPT Codes: ANES LWR INTST SCR COLSC - 24052 ([id number]) P2 - PATIENT W/MILD SYST DISEASE, QK - TEST FACILITY ENGINEER 2-4 CNCRNT ANES PROC, QX - DISTRICT PLANT ENGINEER SVC W/ MD MED DIRECTION
--- NOTE | 2025-04-13 10:46 | P.ANES_ITS ---
Anesthesia Charges Start Date/Time Anesthesia Start Date: 04/13/25 Anesthesia Start Time: 08:16 Stop Date/Time Anesthesia Stop Date: 04/13/25 Anesthesia Stop Time: 09:12 Coding CPT Codes CPT Codes: ANES LWR INTST SCR COLSC - 08670 ([id number]) P2 - PATIENT W/MILD SYST DISEASE, QK - FINANCIAL SYSTEMS DIRECTOR 2-4 CNCRNT ANES PROC, QX - COST ACCOUNTING CLERK SVC W/ MD MED DIRECTION
--- NOTE | 2025-04-13 10:46 | W.ANESCHARGE ---
Anesthesia Charges Start Date/Time Anesthesia Start Date: 04/13/25 Anesthesia Start Time: 08:16 Stop Date/Time Anesthesia Stop Date: 04/13/25 Anesthesia Stop Time: 09:12 Coding CPT Codes CPT Codes: ANES LWR INTST SCR COLSC - 25148 ([id number]) P2 - PATIENT W/MILD SYST DISEASE, QK - CLERICAL ADJUDICATOR 2-4 CNCRNT ANES PROC, QX - VERIFICATION MANAGER SVC W/ MD MED DIRECTION
== END 2025-04-13 07:03 | disposition home or self-care (01) ==
LOC: OP CLINIC 07:04
PROVIDERS: PCP Physician Assistant Medical; Visit Provider Surgery
DX: Z12.11 Encounter for screening for malignant neoplasm of colon (principal)
CPT/HCPCS: 00812; 45378; J2704